=== PATIENT | female | born 1955 | race African-American/Black ===

== ENCOUNTER → 2016-05-29 | Outpatient (CLI) | payer OTHER ==
[~2016-05-29] VITALS: Ht 167.6 cm; Wt 77.1 kg
[~2016-05-29] MED LIST: ADENOSINE 65 MG in GIVE UN-DILUTED 0 ML IV ONE; ALBUPOW26 XX; ASPI-498 PO; FUR40T PO; HYDR-3546 PO; IPRASOL39 IN; LAC30LQ PO; LACT10SO44 PO; METO25TA5 PO; OMEP20CA5 PO; ONDA4SOL2 PO; RIFA550T PO; Rifaximin PO; SUCR1TAB38 PO; TRAM100T37 PO
== END | disposition home or self-care (01) ==
LOC: XY 08:59
PROVIDERS: ATTEND Internal Medicine Cardiovascular Disease
DX: Z01.810 Encounter for preprocedural cardiovascular examination (principal)
CPT/HCPCS: 78452; 93017; A9500; J0153

== ENCOUNTER 2016-06-20 12:02 | Emergency (ER) | payer OTHER ==
[~2016-06-20] VITALS: Ht 167.6 cm; Wt 136.1 kg
[~2016-06-20 12:02] MED LIST changes: -ADENOSINE 65 MG in GIVE UN-DILUTED 0 ML IV ONE
[2016-06-20] MEDS ORDERED: HYDROcodone-ACET 5/325MG TAB PO ONE (12:30)
[2016-06-20] MEDS ORDERED: ONDANSETRON HCL 4 MG/2 ML VIAL IV ONE (15:00)
[2016-06-20 16:12] LABS: Albumin 1.9 g/dL (3.4-5.0); BUN/Creatinine Ratio 17.1; Calcium 7.8 mg/dL (8.5-10.1)
[2016-06-20 16:15] LABS: Bilirubin, Total 2.1 mg/dL (0.2-1.0); Total Protein 5.3 g/dL (6.4-8.2)
[2016-06-20 16:41] LABS: Basophils # (auto) 0 uL; Basophils % (auto) 0.1 % (0.0-2.0); DEFINITIVE VIEW TRANSMISSION; Eosinophils # (auto) 0.1 uL; Eosinophils % (auto) 0.4 % (0.0-7.0); Hematocrit 29.9 % (36.0-46.0); Hemoglobin 9.1 g/dL (12.2-16.2); Lymphocytes # (auto) 1.3 uL; Lymphocytes % (auto) 9.6 % (10.0-50.0); Mean Corpuscular Hemoglobin 26.4 pg (28.0-32.0); Mean Corpuscular Hgb Conc. 30.5 g/dL (32.0-36.0); Mean Corpuscular Volume 86.9 fL (80.0-100.0); Mean Platelet Volume 9.6 fL (7.4-10.4); Monocytes # (auto) 2.1 uL; Monocytes % (auto) 15.1 % (0.0-12.0); Neutrophils # (auto) 10.4 uL; Neutrophils % (auto) 74.8 % (37.0-80.0); Platelet Count (auto) 222 10^3/uL (140-450); White Blood Cell 13.9 10^3/uL (4.4-10.8)
[2016-06-20] MEDS ORDERED: CEPHALEXIN 250 MG CAP PO ONE (17:15)
[2016-06-20] MEDS ORDERED: LACTULOSE 20Gm/30ML SOLN PO ONE (17:15)
[2016-06-20] MEDS ORDERED: BOOST PLUS 8 ounce PO SCH (18:00)
[2016-06-20 18:15] LABS: Anisocytosis Moderate; Burr Cells FEW; Hypochromia Slight; Ovalocytes FEW; Platelet Estimate Adequate
[2016-06-20 18:22] VITALS: BP 106/49
[2016-06-20 18:23] LABS: B-Type Natriuretic Peptide 595.22 pg/mL (0-100); Temperature: 22.7 C (20.0-25.0)
== END 2016-06-20 18:33 | disposition home or self-care (01) ==
LOC: ER 12:02 → EDBD 12:02 → ER 18:32
DX: J45.909 Unspecified asthma, uncomplicated (principal); E43 Unspecified severe protein-calorie malnutrition; Z68.42 Body mass index [BMI] 45.0-49.9, adult; E66.01 Morbid (severe) obesity due to excess calories; D72.829 Elevated white blood cell count, unspecified; I25.10 Atherosclerotic heart disease of native coronary artery without angina pectoris; I50.9 Heart failure, unspecified; E11.22 Type 2 diabetes mellitus with diabetic chronic kidney disease; I13.2 Hypertensive heart and chronic kidney disease with heart failure and with stage 5 chronic kidney disease, or end stage renal disease; N18.6 End stage renal disease; K21.9 Gastro-esophageal reflux disease without esophagitis; I25.2 Old myocardial infarction; B19.20 Unspecified viral hepatitis C without hepatic coma; F17.210 Nicotine dependence, cigarettes, uncomplicated
CPT/HCPCS: 36415; 80053; 82140; 83880; 85025; 85652; 86141; 93970; 96374; 99285; J2405

== ENCOUNTER → 2016-07-11 | Outpatient (CLI) | payer OTHER ==
[2016-07-11 13:40] LABS: DEFINITIVE VIEW TRANSMISSION; Hematocrit 27.7 % (36.0-46.0); Hemoglobin 8.9 g/dL (12.2-16.2); Mean Corpuscular Volume 84.4 fL (80.0-100.0); Mean Platelet Volume 9.6 fL (7.4-10.4); Platelet Count (auto) 192 10^3/uL (140-450); White Blood Cell 9.3 10^3/uL (4.4-10.8)
[2016-07-11 13:56] LABS: Partial Thromboplastin Time 32.1 sec (22.64-33.71)
[2016-07-11 14:04] LABS: Albumin 1.9 g/dL (3.4-5.0); BUN/Creatinine Ratio 9.3; Bilirubin, Total 1.6 mg/dL (0.2-1.0); Calcium 8.1 mg/dL (8.5-10.1); Potassium 4.1 mmol/L (3.5-5.1); Total Protein 5.5 g/dL (6.4-8.2)
[2016-07-11 14:21] LABS: INR 1.39 (0.9-1.15); Prothrombin Time 14.3 sec (9.37-12.3)
[2016-07-11 14:25] LABS: Red Cell Distribution Width 21.6 % (11.6-16.0)
[2016-07-11 14:26] LABS: Metamyelocytes % 0; Myelocytes % 0; Promyelocytes % 0; Reactive Lymphocytes 0
[2016-07-11 18:29] LABS: Anisocytosis Moderate; Platelet Estimate Adequate
== END | disposition home or self-care (01) ==
LOC: LAB 13:13
PROVIDERS: ATTEND Internal Medicine
DX: E11.9 Type 2 diabetes mellitus without complications (principal)
CPT/HCPCS: 36415; 80053; 85007; 85027; 85610; 85652; 85730; 86141

== ENCOUNTER 2016-07-12 10:51 | Inpatient (IN) | payer OTHER ==
[~2016-07-12] VITALS: Ht 157.5 cm; Wt 139.0 kg
[2016-07-12 13:12] LABS: DEFINITIVE VIEW TRANSMISSION; Hematocrit 28.5 % (36.0-46.0); Hemoglobin 9.3 g/dL (12.2-16.2); Mean Corpuscular Hemoglobin 27.1 pg (28.0-32.0); Mean Corpuscular Hgb Conc. 32.5 g/dL (32.0-36.0); Mean Corpuscular Volume 83.4 fL (80.0-100.0); Mean Platelet Volume 10.6 fL (7.4-10.4); Platelet Count (auto) 158 10^3/uL (140-450); SUSPECT VIEW TRANSMISSION; White Blood Cell 9.7 10^3/uL (4.4-10.8)
[2016-07-12 13:46] LABS: BUN/Creatinine Ratio 8.9; Bilirubin, Total 1.5 mg/dL (0.2-1.0); Calcium 8.3 mg/dL (8.5-10.1); Magnesium 2.7 mg/dL (1.6-2.6); Potassium 4.1 mmol/L (3.5-5.1); Total Protein 5.7 g/dL (6.4-8.2)
[2016-07-12 13:51] LABS: Red Cell Distribution Width 21.5 % (11.6-16.0)
[2016-07-12 13:52] LABS: Metamyelocytes % 0; Myelocytes % 0; Promyelocytes % 0; Reactive Lymphocytes 0
[2016-07-12] MEDS ORDERED: ASPirin 81 mg TAB PO ONE ×2 (14:00→15:30)
[2016-07-12 14:26] LABS: Lactic Acid 3.2 mmol/L (0.4-2.0)
[2016-07-12] MEDS ORDERED: ONDANSETRON HCL 4 MG/2 ML VIAL IV ONE (14:30)
[2016-07-12] MEDS ORDERED: MORPHINE SULFATE 4 MG/ML SYRG IV ONE (14:30)
[2016-07-12 14:58] LABS: REFLEX LACTIC ACID YES OR NO YES
[2016-07-12] MEDS: SODIUM CHLORIDE 0.9% 1,000 ML IV SCH ×2 (15:07→17:50)
[2016-07-12] MEDS ORDERED: LORazepam 0.5 MG TAB PO PRN (15:15)
[2016-07-12] MEDS ORDERED: ACETAMINOPHEN 500 MG TAB PO PRN (15:15)
[2016-07-12] MEDS ORDERED: NITROGLYCERIN 0.4 MG SL TAB SL PRN (15:15)
[2016-07-12] MEDS ORDERED: DEXTROSE (50%) 50ML SYRG IV PRN (15:15)
[2016-07-12] MEDS ORDERED: MORPHINE SULF INJ 2 MG/ML SYRINGE 1ML IV PRN (15:15)
[2016-07-12] MEDS ORDERED: TEMAZEPAM 15 MG CAP PO PRN (15:15)
[2016-07-12] MEDS ORDERED: LACTULOSE 20Gm/30ML SOLN PO PRN (15:15)
[2016-07-12] MEDS ORDERED: PROMETHAZINE HCL 25 MG/ML 1ML IV PRN (15:15)
[2016-07-12 15:30] LABS: Platelet Estimate Adequate
[2016-07-12] MEDS ORDERED: ENOXAPARIN SOD 30 MG/0.3 ML SYRINGE SC ONE (15:30)
[2016-07-12] MEDS ORDERED: NITROGLYCERIN 0.2MG/HR TOPICAL PATCH TD ONE (15:30)
[2016-07-12] MEDS ORDERED: PANTOPRAZOLE 40 MG TAB PO ONE (15:30)
[2016-07-12] MEDS ORDERED: METOPROLOL TARTRATE 25 MG TAB PO ONE (15:30)
[2016-07-12 15:31] LABS: Ovalocytes FEW
[2016-07-12] MEDS: InsuLIN REG 1unit/0.01ml Soln (100units/ml) SC SCH ×2 (17:00→22:00)
[2016-07-12] MEDS: ACCU-CHEK COMFORT CURVE STRIP VI SCH ×2 (17:00→22:11)
[2016-07-12 17:40] VITALS: BP 136/77
[2016-07-12 17:50] LABS: B-Type Natriuretic Peptide 753.78 pg/mL (0-100)
[2016-07-12] MEDS ORDERED: PROMETHAZINE HCL 6.25 MG/5 ML ORAL SYRUP PO PRN (19:00)
[2016-07-12 19:58] VITALS: BP 109/65
[2016-07-12] MEDS ORDERED: TRAMADOL HCL 50 MG PO PRN (20:45)
[2016-07-12] MEDS ORDERED: ALBUTEROL 2.5 MG XX SCH (20:45)
[2016-07-12] MEDS ORDERED: IPRATROPIUM BROM 0.5 MG/2.5ML INH SOL NEB SCH (20:45)
[2016-07-12] MEDS ORDERED: traMADol HCL 50 MG TAB PO PRN (21:15)
[2016-07-12] MEDS ORDERED: RIFAXIMIN 550 MG PO SCH (22:00)
[2016-07-12] MEDS: CIPROFLOXACIN HCL 500 MG TAB PO SCH (22:07)
[2016-07-12] MEDS: FUROSEMIDE 40 MG TAB PO SCH (22:08)
[2016-07-12] MEDS: ATORVASTATIN 20 MG TAB PO SCH (22:08)
[2016-07-12] MEDS: METOPROLOL TARTRATE 25 MG TAB PO SCH (22:09)
[2016-07-12] MEDS: RIFAXIMIN 550 MG TAB PO SCH (22:09)
[2016-07-12 22:12] LABS: Lactic Acid 2.2 mmol/L (0.4-2.0)
[2016-07-12 22:45] LABS: REFLEX LACTIC ACID YES OR NO YES
[2016-07-12 23:32] VITALS: BP 109/65
[2016-07-12 23:52] VITALS: BP 123/68
[2016-07-13] MEDS ORDERED: ALBUTEROL SULF 2.5 MG/0.5ML(0.5%) NEB SOLN NEB PRN
[2016-07-13] MEDS: SUCRALFATE 1 GM TAB PO SCH ×5 (00:29→23:48)
[2016-07-13 03:48] VITALS: BP 125/66
[2016-07-13 05:26] LABS: DEFINITIVE VIEW TRANSMISSION; Hematocrit 26.1 % (36.0-46.0); Hemoglobin 8.2 g/dL (12.2-16.2); Mean Corpuscular Hemoglobin 26.4 pg (28.0-32.0); Mean Corpuscular Hgb Conc. 31.6 g/dL (32.0-36.0); Mean Corpuscular Volume 83.6 fL (80.0-100.0); Mean Platelet Volume 9.7 fL (7.4-10.4); Platelet Count (auto) 170 10^3/uL (140-450); SUSPECT VIEW TRANSMISSION; White Blood Cell 8.2 10^3/uL (4.4-10.8)
[2016-07-13 05:28] LABS: Red Cell Distribution Width 21.1 % (11.6-16.0)
[2016-07-13 05:29] LABS: Metamyelocytes % 0; Myelocytes % 0; Promyelocytes % 0; Reactive Lymphocytes 0
[2016-07-13 05:59] LABS: Anisocytosis Slight; Macrocytosis Slight; Platelet Estimate Adequate; Polychromasia Slight
[2016-07-13] MEDS: SODIUM CHLORIDE 0.9% 1,000 ML IV SCH (06:02)
[2016-07-13 06:05] LABS: Albumin 1.8 g/dL (3.4-5.0); BUN/Creatinine Ratio 8.9; Calcium 7.8 mg/dL (8.5-10.1); Potassium 4.4 mmol/L (3.5-5.1)
[2016-07-13] MEDS: InsuLIN REG 1unit/0.01ml Soln (100units/ml) SC SCH ×4 (06:07→22:00)
[2016-07-13] MEDS: ACCU-CHEK COMFORT CURVE STRIP VI SCH ×4 (06:07→22:00)
[2016-07-13 06:08] LABS: Bilirubin, Total 1.5 mg/dL (0.2-1.0); Total Protein 5.3 g/dL (6.4-8.2)
[2016-07-13] MEDS: ASPirin 81 mg TAB PO SCH (09:36)
[2016-07-13] MEDS: CIPROFLOXACIN HCL 500 MG TAB PO SCH ×2 (09:37→22:16)
[2016-07-13] MEDS: METOPROLOL TARTRATE 25 MG TAB PO SCH ×2 (09:38→22:16)
[2016-07-13] MEDS: FUROSEMIDE 40 MG TAB PO SCH ×2 (09:38→22:16)
[2016-07-13] MEDS: PANTOPRAZOLE 40 MG TAB PO SCH (09:38)
[2016-07-13] MEDS: ENOXAPARIN SOD 30 MG/0.3 ML SYRINGE SC SCH (09:39)
[2016-07-13] MEDS: NITROGLYCERIN 0.2MG/HR TOPICAL PATCH TD SCH (09:40)
[2016-07-13] MEDS ORDERED: ENOXAPARIN SOD 40 MG/0.4 ML SYRINGE SC SCH (10:00)
[2016-07-13] MEDS: RIFAXIMIN 550 MG TAB PO SCH ×2 (11:36→22:21)
[2016-07-13] MEDS: PROMETHAZINE HCL 25 MG/ML 1ML IV PRN (11:37)
[2016-07-13 12:01] VITALS: BP 133/73
[2016-07-13 12:08] LABS: Hematocrit 25.2 % (36.0-46.0)
[2016-07-13] MEDS: MORPHINE SULF INJ 2 MG/ML SYRINGE 1ML IV PRN (14:37)
[2016-07-13] MEDS: LACTULOSE 20Gm/30ML SOLN PO SCH ×2 (16:05→22:00)
[2016-07-13 16:25] VITALS: BP 118/70
[2016-07-13 17:38] LABS: Urine Bilirubin Negative (Negative); Urine Blood Negative /uL (Negative); Urine Color Yellow (Yellow); Urine Glucose Normal (Normal); Urine Hyaline Cast FEW /lpf (0 - 2); Urine Ketone Negative (Negative); Urine Nitrite Negative (Negative); Urine RBC 3 /hpf (0 - 4); Urine Squamous Epithelial Cell MOD /hpf (<5); Urine Urobilinogen Normal (Negative); Urine pH 5.5 (5.0-8.0)
[2016-07-13 19:31] VITALS: BP 116/94
[2016-07-13] MEDS: ATORVASTATIN 20 MG TAB PO SCH (22:16)
[2016-07-14] VITALS: BP 106/63
[2016-07-14] MEDS: MORPHINE SULF INJ 2 MG/ML SYRINGE 1ML IV PRN (00:25)
[2016-07-14 04:15] VITALS: BP 133/54
[2016-07-14] MEDS: LACTULOSE 20Gm/30ML SOLN PO SCH ×4 (05:33→21:50)
[2016-07-14] MEDS: ACCU-CHEK COMFORT CURVE STRIP VI SCH ×4 (05:35→21:50)
[2016-07-14] MEDS: SUCRALFATE 1 GM TAB PO SCH ×3 (05:35→17:07)
[2016-07-14] MEDS: InsuLIN REG 1unit/0.01ml Soln (100units/ml) SC SCH ×4 (05:35→21:50)
[2016-07-14 06:14] LABS: DEFINITIVE VIEW TRANSMISSION; Hematocrit 26.8 % (36.0-46.0); Hemoglobin 8.4 g/dL (12.2-16.2); Mean Corpuscular Hemoglobin 26.2 pg (28.0-32.0); Mean Corpuscular Hgb Conc. 31.2 g/dL (32.0-36.0); Mean Platelet Volume 10.1 fL (7.4-10.4); Platelet Count (auto) 178 10^3/uL (140-450); SUSPECT VIEW TRANSMISSION; White Blood Cell 7.5 10^3/uL (4.4-10.8)
[2016-07-14 06:30] LABS: Metamyelocytes % 0; Myelocytes % 0; Promyelocytes % 0; Reactive Lymphocytes 0; Red Cell Distribution Width 20.9 % (11.6-16.0)
[2016-07-14 06:41] LABS: Albumin 1.9 g/dL (3.4-5.0); BUN/Creatinine Ratio 8.6; Bilirubin, Total 1.5 mg/dL (0.2-1.0); Potassium 4.6 mmol/L (3.5-5.1); Total Protein 5.4 g/dL (6.4-8.2)
[2016-07-14 07:20] LABS: Anisocytosis Slight; Burr Cells FEW; Hypochromia Slight; Ovalocytes FEW; Platelet Estimate Adequate
[2016-07-14 08:00] VITALS: BP 139/72
[2016-07-14] MEDS: CIPROFLOXACIN HCL 500 MG TAB PO SCH ×2 (09:44→21:47)
[2016-07-14] MEDS: ASPirin 81 mg TAB PO SCH (09:44)
[2016-07-14] MEDS: FUROSEMIDE 40 MG TAB PO SCH ×2 (09:46→21:46)
[2016-07-14] MEDS: ENOXAPARIN SOD 30 MG/0.3 ML SYRINGE SC SCH (09:46)
[2016-07-14] MEDS: NITROGLYCERIN 0.2MG/HR TOPICAL PATCH TD SCH (09:47)
[2016-07-14] MEDS: PANTOPRAZOLE 40 MG TAB PO SCH (09:48)
[2016-07-14] MEDS: METOPROLOL TARTRATE 25 MG TAB PO SCH ×2 (09:49→21:49)
[2016-07-14] MEDS: RIFAXIMIN 550 MG TAB PO SCH ×2 (09:59→22:00)
[2016-07-14 11:51] VITALS: BP 118/70
[2016-07-14 16:47] VITALS: BP 114/67
[2016-07-14 21:06] VITALS: BP 106/61
[2016-07-14] MEDS: ATORVASTATIN 20 MG TAB PO SCH (21:45)
[2016-07-15] VITALS (7 sets, daily range): BP systolic 104–116; BP diastolic 50–73
[2016-07-15] MEDS: LACTULOSE 20Gm/30ML SOLN PO SCH ×4 (04:24→22:00)
[2016-07-15] MEDS: SUCRALFATE 1 GM TAB PO SCH ×5 (06:00→23:40)
[2016-07-15 06:23] LABS: Albumin 1.8 g/dL (3.4-5.0); Potassium 4.5 mmol/L (3.5-5.1)
[2016-07-15 06:26] LABS: BUN/Creatinine Ratio 8.5; Total Protein 5.3 g/dL (6.4-8.2)
[2016-07-15 06:28] LABS: Bilirubin, Total 1.4 mg/dL (0.2-1.0)
[2016-07-15] MEDS: ACCU-CHEK COMFORT CURVE STRIP VI SCH (06:41)
[2016-07-15] MEDS: InsuLIN REG 1unit/0.01ml Soln (100units/ml) SC SCH (06:42)
[2016-07-15] MEDS: NITROGLYCERIN 0.2MG/HR TOPICAL PATCH TD SCH (09:34)
[2016-07-15] MEDS: METOPROLOL TARTRATE 25 MG TAB PO SCH (09:35)
[2016-07-15] MEDS: PANTOPRAZOLE 40 MG TAB PO SCH (09:36)
[2016-07-15] MEDS: CIPROFLOXACIN HCL 500 MG TAB PO SCH ×2 (09:36→22:38)
[2016-07-15] MEDS: FUROSEMIDE 40 MG TAB PO SCH (09:36)
[2016-07-15] MEDS: ASPirin 81 mg TAB PO SCH (09:37)
[2016-07-15] MEDS: ENOXAPARIN SOD 30 MG/0.3 ML SYRINGE SC SCH (09:37)
[2016-07-15 09:43] LABS: Partial Thromboplastin Time 31.4 sec (22.64-33.71)
[2016-07-15 09:45] LABS: INR 1.43 (0.9-1.15); Prothrombin Time 14.7 sec (9.37-12.3)
[2016-07-15] MEDS: RIFAXIMIN 550 MG TAB PO SCH ×2 (10:17→22:38)
[2016-07-15] MEDS ORDERED: HEPARIN 1,000 UNITS/ml 1ML VIAL ONE (10:22)
[2016-07-15] MEDS ORDERED: LIDOCAINE 1% HCL (LOCAL ANESTH.) INJ 20ML MDV ONE (10:22)
[2016-07-15] MEDS ORDERED: ceFAZolin 1GM VL ONE (10:22)
[2016-07-15] MEDS ORDERED: BUPIVACAINE 0.25% INJ 50ML VIAL ONE (10:22)
[2016-07-15] MEDS ORDERED: HEPARIN SODIUM (PORCINE) 5000 UNITS/ML 1ML VIAL ONE (10:23)
[2016-07-15] MEDS ORDERED: B-COMPLEX W/ C & FOLIC ACID(NEPHROVITE TAB) PO ONE (12:15)
[2016-07-15] MEDS ORDERED: EPOETIN ALFA 10,000 UNIT/1 ML VIAL IV ONE (12:15)
[2016-07-15] MEDS ORDERED: SODIUM CHL 0.9% 1000 ML BAG XX ONE (12:15)
[2016-07-15] MEDS ORDERED: FUROSEMIDE 40 MG TAB PO ONE (12:15)
[2016-07-15] MEDS ORDERED: ceFAZolin 1GM/50ML D5W 50 ML IV ONE (12:25)
[2016-07-15] MEDS ORDERED: PROPOFOL 10 MG/ML 20 ML IV ONE (12:36)
[2016-07-15] MEDS ORDERED: fentaNYL CITRATE 100 MCG/2 ML VL ONE (12:41)
[2016-07-15] MEDS ORDERED: HEPARIN SODIUM (PORCINE) 5000 UNITS/ML 1ML VIAL XX ONE (12:44)
[2016-07-15] MEDS ORDERED: HEPARIN 1,000 UNITS/ml 1ML VIAL XX ONE (12:44)
[2016-07-15] MEDS ORDERED: LIDOCAINE 1% HCL (LOCAL ANESTH.) INJ 20ML MDV IJ ONE (12:44)
[2016-07-15] MEDS ORDERED: hydrALAZINE HCL 20 MG/ML VL IV PRN (13:45)
[2016-07-15] MEDS ORDERED: ONDANSETRON HCL 4 MG/2 ML VIAL IV ONE (13:45)
[2016-07-15] MEDS ORDERED: ePHEDrine SULFATE 50 MG/ML AMP IV PRN (13:45)
[2016-07-15] MEDS ORDERED: fentaNYL CITRATE 100 MCG/2 ML VL IV ONE (14:00)
[2016-07-15] MEDS: HYDROcodone-ACET 5/325MG TAB PO PRN (15:23)
[2016-07-15] MEDS: CALCIUM ACETATE 667 MG CAP PO SCH (15:47)
[2016-07-15] MEDS: ATORVASTATIN 20 MG TAB PO SCH (22:39)
[2016-07-15] MEDS: HYDROmorphone HCL 2 MG/ML VL IV PRN (22:50)
[2016-07-15] MEDS: PROMETHAZINE HCL 25 MG/ML 1ML IV PRN (22:54)
[2016-07-16] MEDS: PROMETHAZINE HCL 25 MG/ML 1ML IV PRN ×2 (03:59→12:48)
[2016-07-16] MEDS: HYDROmorphone HCL 2 MG/ML VL IV PRN ×2 (04:09→12:48)
[2016-07-16] MEDS: LACTULOSE 20Gm/30ML SOLN PO SCH ×4 (04:14→21:50)
[2016-07-16 05:08] VITALS: BP 110/52
[2016-07-16] MEDS: SUCRALFATE 1 GM TAB PO SCH ×3 (06:01→17:54)
[2016-07-16 06:35] LABS: Potassium 4.2 mmol/L (3.5-5.1)
[2016-07-16 06:43] LABS: Albumin 1.7 g/dL (3.4-5.0); BUN/Creatinine Ratio 7.3; Calcium 7.4 mg/dL (8.5-10.1)
[2016-07-16 06:45] LABS: Bilirubin, Total 1.4 mg/dL (0.2-1.0); Total Protein 5.1 g/dL (6.4-8.2)
[2016-07-16] MEDS: FUROSEMIDE 40 MG TAB PO SCH (07:00)
[2016-07-16 09:00] VITALS: BP 105/57
[2016-07-16] MEDS: CALCIUM ACETATE 667 MG CAP PO SCH ×3 (10:34→17:55)
[2016-07-16] MEDS: ENOXAPARIN SOD 30 MG/0.3 ML SYRINGE SC SCH (10:34)
[2016-07-16] MEDS: CIPROFLOXACIN HCL 500 MG TAB PO SCH ×2 (10:34→21:49)
[2016-07-16] MEDS: RIFAXIMIN 550 MG TAB PO SCH ×2 (10:34→21:49)
[2016-07-16] MEDS: ASPirin 81 mg TAB PO SCH (10:35)
[2016-07-16] MEDS: B-COMPLEX W/ C & FOLIC ACID(NEPHROVITE TAB) PO SCH (10:35)
[2016-07-16] MEDS: PANTOPRAZOLE 40 MG TAB PO SCH (10:35)
[2016-07-16 12:43] VITALS: BP 113/56
[2016-07-16] MEDS: SODIUM FERR GLUC 62.5MG/5ML 125 MG in SODIUM CHL 0.9% 100 ML IV SCH (15:25)
[2016-07-16 17:00] VITALS: BP 111/58
[2016-07-16] MEDS: ATORVASTATIN 20 MG TAB PO SCH (21:49)
[2016-07-16] MEDS: HYDROcodone-ACET 5/325MG TAB PO PRN (21:50)
[2016-07-16 22:26] VITALS: BP 106/73
[2016-07-17] MEDS: SUCRALFATE 1 GM TAB PO SCH ×4 (00:07→18:00)
[2016-07-17] MEDS: LACTULOSE 20Gm/30ML SOLN PO SCH ×4 (04:00→21:27)
[2016-07-17 05:13] VITALS: BP 118/50
[2016-07-17] MEDS: FUROSEMIDE 40 MG TAB PO SCH (06:04)
[2016-07-17 06:32] LABS: Albumin 1.9 g/dL (3.4-5.0); BUN/Creatinine Ratio 6.9; Bilirubin, Total 1.3 mg/dL (0.2-1.0); Calcium 8.2 mg/dL (8.5-10.1); Potassium 4.3 mmol/L (3.5-5.1); Total Protein 5.4 g/dL (6.4-8.2)
[2016-07-17] MEDS: HYDROcodone-ACET 5/325MG TAB PO PRN (08:10)
[2016-07-17 09:00] VITALS: BP 119/61
[2016-07-17] MEDS: SODIUM FERR GLUC 62.5MG/5ML 125 MG in SODIUM CHL 0.9% 100 ML IV SCH (10:00)
[2016-07-17] MEDS ORDERED: SODIUM CHL 0.9% 1000 ML BAG XX ONE (10:00)
[2016-07-17] MEDS ORDERED: EPOETIN ALFA 10,000 UNIT/1 ML VIAL IV ONE (10:00)
[2016-07-17 10:03] VITALS: BP 121/65
[2016-07-17] MEDS: CALCIUM ACETATE 667 MG CAP PO SCH ×2 (12:00→18:00)
[2016-07-17] MEDS: ENOXAPARIN SOD 30 MG/0.3 ML SYRINGE SC SCH (12:09)
[2016-07-17] MEDS: RIFAXIMIN 550 MG TAB PO SCH ×2 (12:09→21:29)
[2016-07-17] MEDS: B-COMPLEX W/ C & FOLIC ACID(NEPHROVITE TAB) PO SCH (12:09)
[2016-07-17] MEDS: CIPROFLOXACIN HCL 500 MG TAB PO SCH (12:10)
[2016-07-17] MEDS: PANTOPRAZOLE 40 MG TAB PO SCH (12:10)
[2016-07-17] MEDS: HYDROmorphone HCL 2 MG/ML VL IV PRN (12:26)
[2016-07-17] MEDS: PROMETHAZINE HCL 25 MG/ML 1ML IV PRN (12:35)
[2016-07-17 13:00] VITALS: BP 114/56
[2016-07-17 13:29] LABS: Hemoglobin 8.2 g/dL (12.2-16.2)
[2016-07-17 15:10] LABS: Vitamin D 25-Hydroxy 4.9 ng/mL (.); Vitamin D-2 25-Hydroxy <1.0 ng/mL (.)
[2016-07-17 16:56] VITALS: BP 116/58
[2016-07-17] MEDS: ATORVASTATIN 20 MG TAB PO SCH (21:28)
[2016-07-17 21:31] VITALS: BP 111/67
[2016-07-17] MEDS ORDERED: FUROSEMIDE 20 MG/2 ML VIAL IV ONE (22:15)
[2016-07-18] MEDS: HYDROcodone-ACET 5/325MG TAB PO PRN ×3 (02:08→21:34)
[2016-07-18] MEDS: PROMETHAZINE HCL 25 MG/ML 1ML IV PRN (02:08)
[2016-07-18] MEDS: LACTULOSE 20Gm/30ML SOLN PO SCH ×4 (04:00→21:35)
[2016-07-18 05:00] VITALS: BP 120/63
[2016-07-18] MEDS: SUCRALFATE 1 GM TAB PO SCH ×4 (06:03→18:20)
[2016-07-18] MEDS: FUROSEMIDE 40 MG TAB PO SCH (06:03)
[2016-07-18 07:07] LABS: Albumin 1.6 g/dL (3.4-5.0); Calcium 7.5 mg/dL (8.5-10.1); Potassium 3.9 mmol/L (3.5-5.1)
[2016-07-18 07:10] LABS: Bilirubin, Total 1.4 mg/dL (0.2-1.0); Total Protein 4.7 g/dL (6.4-8.2)
[2016-07-18] MEDS: CALCIUM ACETATE 667 MG CAP PO SCH ×3 (08:00→18:20)
[2016-07-18 09:00] VITALS: BP 120/64
[2016-07-18] MEDS: B-COMPLEX W/ C & FOLIC ACID(NEPHROVITE TAB) PO SCH (09:58)
[2016-07-18] MEDS: CIPROFLOXACIN HCL 500 MG TAB PO SCH (09:59)
[2016-07-18] MEDS: RIFAXIMIN 550 MG TAB PO SCH ×2 (10:00→21:34)
[2016-07-18] MEDS: PANTOPRAZOLE 40 MG TAB PO SCH (10:01)
[2016-07-18] MEDS: SODIUM FERR GLUC 62.5MG/5ML 125 MG in SODIUM CHL 0.9% 100 ML IV SCH (10:04)
[2016-07-18] MEDS: ENOXAPARIN SOD 30 MG/0.3 ML SYRINGE SC SCH (10:05)
[2016-07-18 13:00] VITALS: BP 127/65
[2016-07-18] MEDS ORDERED: SODIUM CHL 0.9% 1000 ML BAG XX ONE (14:45)
[2016-07-18] MEDS ORDERED: EPOETIN ALFA 10,000 UNIT/1 ML VIAL IV ONE (14:45)
[2016-07-18 17:00] VITALS: BP 120/62
[2016-07-18] MEDS: ATORVASTATIN 20 MG TAB PO SCH (21:34)
[2016-07-19 00:06] VITALS: BP 120/62
[2016-07-19] MEDS: LACTULOSE 20Gm/30ML SOLN PO SCH ×2 (04:00→09:46)
[2016-07-19 05:08] VITALS: BP 124/65
[2016-07-19] MEDS: FUROSEMIDE 40 MG TAB PO SCH (06:16)
[2016-07-19] MEDS: SUCRALFATE 1 GM TAB PO SCH ×3 (06:17→11:56)
[2016-07-19 06:38] LABS: Albumin 1.7 g/dL (3.4-5.0); Calcium 7.6 mg/dL (8.5-10.1); Potassium 3.9 mmol/L (3.5-5.1)
[2016-07-19 06:41] LABS: BUN/Creatinine Ratio 5.8
[2016-07-19 06:42] LABS: Bilirubin, Total 1.6 mg/dL (0.2-1.0); Total Protein 4.8 g/dL (6.4-8.2)
[2016-07-19] MEDS: CALCIUM ACETATE 667 MG CAP PO SCH ×2 (08:00→11:56)
[2016-07-19 08:30] VITALS: BP 126/59
[2016-07-19] MEDS: SODIUM FERR GLUC 62.5MG/5ML 125 MG in SODIUM CHL 0.9% 100 ML IV SCH (09:46)
[2016-07-19] MEDS: RIFAXIMIN 550 MG TAB PO SCH (09:46)
[2016-07-19] MEDS: PANTOPRAZOLE 40 MG TAB PO SCH (09:46)
[2016-07-19] MEDS: B-COMPLEX W/ C & FOLIC ACID(NEPHROVITE TAB) PO SCH (09:46)
[2016-07-19] MEDS: ENOXAPARIN SOD 30 MG/0.3 ML SYRINGE SC SCH (09:47)
[2016-07-19] MEDS ORDERED: METOPROLOL SUCCINATE XL 50 MG TAB PO SCH (10:00)
[2016-07-19] MEDS ORDERED: METO50TA7 PO (10:57)
[2016-07-19] MEDS ORDERED: ALBUMIN 25% 100 ML IV ONE (11:30)
[2016-07-19] MEDS: HYDROcodone-ACET 5/325MG TAB PO PRN (12:02)
[2016-07-19 13:00] VITALS: BP 112/38
== END 2016-07-19 14:03 | disposition home or self-care (01) | DRG 280 ==
LOC: ER 10:54 → TELE 10:55 → DOU IN ICU 17:39 → TELE-WESTW 07-14 14:55
PROVIDERS: ADMIT Internal Medicine; ATTEND Internal Medicine
PROC: 02HV33Z Insertion of Infusion Device into Superior Vena Cava, Percutaneous Approach (ICD-10-PCS; 2016-07-15)
PROC: 5A1D60Z (ICD-10-PCS; 2016-07-15)
PROC: B5171ZA Fluoroscopy of Left Subclavian Vein using Low Osmolar Contrast, Guidance (ICD-10-PCS; principal; 2016-07-15 12:36)
DX: I21.4 Non-ST elevation (NSTEMI) myocardial infarction (principal); E43 Unspecified severe protein-calorie malnutrition; N18.6 End stage renal disease; I13.2 Hypertensive heart and chronic kidney disease with heart failure and with stage 5 chronic kidney disease, or end stage renal disease; Z68.43 Body mass index [BMI] 50.0-59.9, adult; N04.9 Nephrotic syndrome with unspecified morphologic changes; I50.32 Chronic diastolic (congestive) heart failure; T81.4XXA Infection following a procedure, initial encounter; D75.89 Other specified diseases of blood and blood-forming organs; B19.20 Unspecified viral hepatitis C without hepatic coma; D50.9 Iron deficiency anemia, unspecified; D63.8 Anemia in other chronic diseases classified elsewhere; E11.22 Type 2 diabetes mellitus with diabetic chronic kidney disease; E66.9 Obesity, unspecified; F17.210 Nicotine dependence, cigarettes, uncomplicated; I25.10 Atherosclerotic heart disease of native coronary artery without angina pectoris; J45.909 Unspecified asthma, uncomplicated; K21.9 Gastro-esophageal reflux disease without esophagitis; K74.60 Unspecified cirrhosis of liver; Z82.3 Family history of stroke; Z82.49 Family history of ischemic heart disease and other diseases of the circulatory system; Z83.3 Family history of diabetes mellitus; I25.2 Old myocardial infarction; Z79.899 Other long term (current) drug therapy; Z99.2 Dependence on renal dialysis; Z79.4 Long term (current) use of insulin; Z90.49 Acquired absence of other specified parts of digestive tract
CPT/HCPCS: 36415; 71010; 76000; 76775; 80053; 80061; 81001; 82270; 82306; 82550; 82570; 82728; 82962; 83036; 83540; 83550; 83605; 83735; 83880; 83970; 84100; 84156; 84443; 84484; 85007; 85014; 85018; 85027; 85610; 85652; 85730; 86141; 86803; 86850; 86900; 86901; 87040; 87081; 87340; 90935; 93005; 93970; 96372; 96374; 96375; J0690; J0885; J1642; J2001; J2405; J2704; J3490

== ENCOUNTER 2016-08-21 15:14 | Inpatient (IN) | payer OTHER ==
[~2016-08-21] VITALS: Ht 167.6 cm; Wt 122.1 kg
[~2016-08-21 15:14] MED LIST changes: -METO25TA5 PO; +METO50TA7 PO
[2016-08-21 16:49] LABS: Basophils # (auto) 0.1 uL; DEFINITIVE VIEW TRANSMISSION; Eosinophils # (auto) 0.2 uL; Neutrophils # (auto) 5.2 uL; SUSPECT VIEW TRANSMISSION
[2016-08-21 16:57] LABS: Basophils % (auto) 0.8 % (0.0-2.0); Eosinophils % (auto) 2.8 % (0.0-7.0); Hematocrit 20.8 % (36.0-46.0); Lymphocytes # (auto) 0.8 uL; Lymphocytes % (auto) 10.5 % (10.0-50.0); Mean Corpuscular Hemoglobin 26.9 pg (28.0-32.0); Mean Corpuscular Hgb Conc. 31.9 g/dL (32.0-36.0); Mean Corpuscular Volume 84.5 fL (80.0-100.0); Mean Platelet Volume 8.9 fL (7.4-10.4); Monocytes # (auto) 1.1 uL; Neutrophils % (auto) 70.9 % (37.0-80.0); Platelet Count (auto) 125 10^3/uL (140-450); White Blood Cell 7.3 10^3/uL (4.4-10.8)
[2016-08-21 17:00] LABS: Nucleated Red Blood Cells % 5.9 %; Red Cell Distribution Width 24.4 % (11.6-16.0)
[2016-08-21 17:03] LABS: Hemoglobin 6.6 g/dL (12.2-16.2)
[2016-08-21 17:22] LABS: Albumin 1.8 g/dL (3.4-5.0); BUN/Creatinine Ratio 2.7; Bilirubin, Total 2.3 mg/dL (0.2-1.0); Calcium 7.7 mg/dL (8.5-10.1); Magnesium 2.1 mg/dL (1.6-2.6); Total Protein 5.3 g/dL (6.4-8.2)
[2016-08-21 17:33] LABS: Potassium 2.7 mmol/L (3.5-5.1)
[2016-08-21] MEDS ORDERED: SODIUM CHLORIDE 0.9% 500 ML IVB ONE (18:43)
[2016-08-21 18:45] LABS: Anisocytosis Moderate; Hypochromia Moderate; Ovalocytes FEW; Platelet Estimate Decreased
[2016-08-21 18:46] LABS: Poikilocytosis Moderate
[2016-08-21] MEDS ORDERED: ACETAMINOPHEN 500 MG TAB PO PRN (19:15)
[2016-08-21] MEDS ORDERED: DEXTROSE (50%) 50ML SYRG IV PRN (19:15)
[2016-08-21] MEDS ORDERED: LACTULOSE 20Gm/30ML SOLN PO PRN (19:15)
[2016-08-21] MEDS ORDERED: PANTOPRAZOLE SODIUM 40 MG/10 ML VIAL IV ONE (19:15)
[2016-08-21] MEDS ORDERED: MORPHINE SULF INJ 2 MG/ML SYRINGE 1ML IV PRN (19:15)
[2016-08-21] MEDS ORDERED: NITROGLYCERIN 0.4 MG SL TAB SL PRN (19:15)
[2016-08-21] MEDS ORDERED: ALBUTEROL SULF 2.5 MG/0.5ML(0.5%) NEB SOLN NEB PRN (19:15)
[2016-08-21] MEDS ORDERED: LORazepam 0.5 MG TAB PO PRN (19:15)
[2016-08-21] MEDS ORDERED: LIDOCAINE 1% HCL (LOCAL ANESTH.) INJ 20ML MDV ID ONE (19:45)
[2016-08-21] MEDS: PROCHLORPERAZINE EDISYLATE 5 MG/ML 2ML VIAL IV PRN (20:18)
[2016-08-21] MEDS ORDERED: CITA10TA59 PO (21:19)
[2016-08-21] MEDS ORDERED: SULF400T11 PO (21:19)
[2016-08-21] MEDS ORDERED: NITR0.4S29 SL (21:19)
[2016-08-21] MEDS ORDERED: FURO40TA4 PO (21:19)
[2016-08-21 21:25] LABS: INR 2.04 (0.9-1.15); Partial Thromboplastin Time 37.4 sec (22.64-33.71); Prothrombin Time 21.7 sec (9.37-12.3)
[2016-08-21] MEDS ORDERED: POTASSIUM CHL 20 Meq TABLET PO ONE (21:30)
[2016-08-21] MEDS: SUCRALFATE 1 GM TAB PO SCH (22:00)
[2016-08-21] MEDS: ACCU-CHEK COMFORT CURVE STRIP VI SCH (22:00)
[2016-08-21] MEDS: InsuLIN REG 1unit/0.01ml Soln (100units/ml) SC SCH (22:00)
[2016-08-21 22:10] VITALS: BP 141/75
[2016-08-21] MEDS: SULFAMETHOX W/TRIMETH(800/160MG) DS TAB PO SCH (22:36)
[2016-08-21] MEDS: RIFAXIMIN 550 MG TAB PO SCH (22:37)
[2016-08-21] MEDS: SODIUM CHLOR 0.9% PF (SALINE LOCK) 10ML VIAL IV SCH (22:38)
[2016-08-21 22:51] VITALS: BP 127/62
[2016-08-21 23:35] VITALS: BP 141/75
[2016-08-22] VITALS (17 sets, daily range): BP systolic 96–135; BP diastolic 51–90
[2016-08-22 01:08] LABS: Hematocrit 17.7 % (36.0-46.0)
[2016-08-22 01:18] LABS: Hemoglobin 5.6 g/dL (12.2-16.2)
[2016-08-22] MEDS: SUCRALFATE 1 GM TAB PO SCH ×4 (05:26→22:04)
[2016-08-22] MEDS: FUROSEMIDE 20 MG TAB PO SCH ×2 (05:27→18:00)
[2016-08-22] MEDS: InsuLIN REG 1unit/0.01ml Soln (100units/ml) SC SCH ×4 (05:57→22:00)
[2016-08-22] MEDS: ACCU-CHEK COMFORT CURVE STRIP VI SCH ×4 (05:57→22:26)
[2016-08-22] MEDS: IPRATROPIUM BROM 0.5 MG/2.5ML INH SOL NEB SCH ×4 (06:56→18:00)
[2016-08-22] MEDS: ALBUTEROL SULF 2.5 MG/0.5ML(0.5%) NEB SOLN NEB SCH ×4 (06:56→18:00)
[2016-08-22] MEDS: PROCHLORPERAZINE EDISYLATE 5 MG/ML 2ML VIAL IV PRN ×2 (08:44→19:38)
[2016-08-22] MEDS: SODIUM CHLOR 0.9% PF (SALINE LOCK) 10ML VIAL IV SCH ×2 (10:00→22:04)
[2016-08-22] MEDS: CITALOPRAM HYDROBR 20 MG TAB PO SCH (10:16)
[2016-08-22] MEDS: METOPROLOL SUCCINATE XL 50 MG TAB PO SCH (10:16)
[2016-08-22] MEDS: SULFAMETHOX W/TRIMETH(800/160MG) DS TAB PO SCH ×2 (10:16→22:04)
[2016-08-22] MEDS: PANTOPRAZOLE 40 MG TAB PO SCH (10:16)
[2016-08-22] MEDS: RIFAXIMIN 550 MG TAB PO SCH ×2 (11:43→22:04)
[2016-08-22] MEDS: PHYTONADIONE (VIT K)10 MG/ML 1ML VIAL SUBCUT SCH (11:43)
[2016-08-22 12:02] LABS: Basophils # (auto) 0 uL; Basophils % (auto) 0.4 % (0.0-2.0); DEFINITIVE VIEW TRANSMISSION; Eosinophils # (auto) 0.3 uL; Hematocrit 23.1 % (36.0-46.0); Hemoglobin 7.4 g/dL (12.2-16.2); Lymphocytes % (auto) 13.7 % (10.0-50.0); Mean Corpuscular Hemoglobin 27.9 pg (28.0-32.0); Mean Corpuscular Hgb Conc. 32.2 g/dL (32.0-36.0); Mean Corpuscular Volume 86.7 fL (80.0-100.0); Mean Platelet Volume 8.9 fL (7.4-10.4); Monocytes # (auto) 1.1 uL; Monocytes % (auto) 14.2 % (0.0-12.0); Neutrophils # (auto) 5.1 uL; Neutrophils % (auto) 67.7 % (37.0-80.0); Platelet Count (auto) 99 10^3/uL (140-450); SUSPECT VIEW TRANSMISSION; White Blood Cell 7.6 10^3/uL (4.4-10.8)
[2016-08-22 12:30] LABS: Albumin 1.6 g/dL (3.4-5.0); Calcium 7.8 mg/dL (8.5-10.1); Potassium 3.2 mmol/L (3.5-5.1); Total Protein 4.7 g/dL (6.4-8.2)
[2016-08-22 12:43] LABS: Nucleated Red Blood Cells % 3.7 %; Red Cell Distribution Width 20.5 % (11.6-16.0)
[2016-08-22] MEDS ORDERED: EPOETIN ALFA 10,000 UNIT/1 ML VIAL IV ONE (16:30)
[2016-08-22] MEDS ORDERED: SODIUM CHL 0.9% 1000 ML BAG XX ONE (16:30)
[2016-08-22 19:45] LABS: Platelet Estimate Decreased
[2016-08-22 19:46] LABS: Anisocytosis Moderate; Hypochromia Moderate; Ovalocytes FEW; Poikilocytosis Moderate
[2016-08-22] MEDS: TEMAZEPAM 15 MG CAP PO PRN (22:04)
[2016-08-22] MEDS: PRO-STAT 64 30ML PO SCH (22:27)
[2016-08-23] VITALS (10 sets, daily range): BP systolic 101–117; BP diastolic 54–82
[2016-08-23 05:40] LABS: Calcium 7.4 mg/dL (8.5-10.1); Potassium 3.1 mmol/L (3.5-5.1)
[2016-08-23 05:43] LABS: Basophils # (auto) 0 uL; Basophils % (auto) 0.2 % (0.0-2.0); DEFINITIVE VIEW TRANSMISSION; Eosinophils # (auto) 0.4 uL; Eosinophils % (auto) 4.1 % (0.0-7.0); Hematocrit 23.5 % (36.0-46.0); Hemoglobin 7.6 g/dL (12.2-16.2); Lymphocytes # (auto) 1.9 uL; Lymphocytes % (auto) 17.3 % (10.0-50.0); Mean Corpuscular Hgb Conc. 32.4 g/dL (32.0-36.0); Mean Corpuscular Volume 86.5 fL (80.0-100.0); Mean Platelet Volume 9.4 fL (7.4-10.4); Monocytes # (auto) 1.4 uL; Monocytes % (auto) 12.6 % (0.0-12.0); Neutrophils # (auto) 7.1 uL; Neutrophils % (auto) 65.8 % (37.0-80.0); Platelet Count (auto) 88 10^3/uL (140-450); White Blood Cell 10.8 10^3/uL (4.4-10.8)
[2016-08-23 06:21] LABS: INR 2.37 (0.9-1.15)
[2016-08-23] MEDS: FUROSEMIDE 20 MG TAB PO SCH (06:23)
[2016-08-23] MEDS: ACCU-CHEK COMFORT CURVE STRIP VI SCH ×4 (06:24→21:49)
[2016-08-23 06:26] LABS: Partial Thromboplastin Time > 170.00 sec (22.64-33.71)
[2016-08-23] MEDS: InsuLIN REG 1unit/0.01ml Soln (100units/ml) SC SCH ×4 (06:29→21:48)
[2016-08-23] MEDS: PHYTONADIONE (VIT K)10 MG/ML 1ML VIAL SUBCUT SCH (07:06)
[2016-08-23] MEDS: ALBUTEROL SULF 2.5 MG/0.5ML(0.5%) NEB SOLN NEB SCH ×3 (07:55→18:00)
[2016-08-23] MEDS: IPRATROPIUM BROM 0.5 MG/2.5ML INH SOL NEB SCH ×3 (07:55→18:00)
[2016-08-23] MEDS: CITALOPRAM HYDROBR 20 MG TAB PO SCH (09:07)
[2016-08-23] MEDS: SULFAMETHOX W/TRIMETH(800/160MG) DS TAB PO SCH (09:08)
[2016-08-23] MEDS: RIFAXIMIN 550 MG TAB PO SCH ×2 (09:08→21:48)
[2016-08-23] MEDS: SUCRALFATE 1 GM TAB PO SCH ×4 (09:08→21:48)
[2016-08-23] MEDS: METOPROLOL SUCCINATE XL 50 MG TAB PO SCH (09:09)
[2016-08-23] MEDS: PRO-STAT 64 30ML PO SCH ×2 (09:09→22:51)
[2016-08-23] MEDS: SODIUM CHLOR 0.9% PF (SALINE LOCK) 10ML VIAL IV SCH ×2 (09:09→21:48)
[2016-08-23] MEDS: PANTOPRAZOLE 40 MG TAB PO SCH (09:10)
[2016-08-23] MEDS ORDERED: POTASSIUM CHL 20 Meq TABLET PO ONE (11:45)
[2016-08-23] MEDS: TEMAZEPAM 15 MG CAP PO PRN (21:48)
[2016-08-24] VITALS (11 sets, daily range): BP systolic 65–117; BP diastolic 34–67
[2016-08-24] MEDS: IPRATROPIUM BROM 0.5 MG/2.5ML INH SOL NEB SCH ×4 (00:23→19:01)
[2016-08-24] MEDS: ALBUTEROL SULF 2.5 MG/0.5ML(0.5%) NEB SOLN NEB SCH ×4 (00:23→19:01)
[2016-08-24 06:09] LABS: Basophils # (auto) 0 uL; Basophils % (auto) 0.4 % (0.0-2.0); DEFINITIVE VIEW TRANSMISSION; Eosinophils # (auto) 0.2 uL; Eosinophils % (auto) 1.5 % (0.0-7.0); Lymphocytes % (auto) 8.8 % (10.0-50.0); Mean Corpuscular Hgb Conc. 33.2 g/dL (32.0-36.0); Mean Corpuscular Volume 87.4 fL (80.0-100.0); Mean Platelet Volume 9.6 fL (7.4-10.4); Monocytes # (auto) 1.2 uL; Monocytes % (auto) 10.9 % (0.0-12.0); Neutrophils # (auto) 8.9 uL; Neutrophils % (auto) 78.4 % (37.0-80.0); Platelet Count (auto) 68 10^3/uL (140-450); White Blood Cell 11.3 10^3/uL (4.4-10.8)
[2016-08-24 06:26] LABS: Nucleated Red Blood Cells % 5.1 %
[2016-08-24 06:31] LABS: Hematocrit 18.3 % (36.0-46.0); Hemoglobin 6.1 g/dL (12.2-16.2)
[2016-08-24] MEDS: InsuLIN REG 1unit/0.01ml Soln (100units/ml) SC SCH ×4 (07:00→22:00)
[2016-08-24] MEDS: ACCU-CHEK COMFORT CURVE STRIP VI SCH ×4 (07:00→21:44)
[2016-08-24] MEDS: SUCRALFATE 1 GM TAB PO SCH ×4 (07:37→21:42)
[2016-08-24] MEDS: SODIUM CHLOR 0.9% PF (SALINE LOCK) 10ML VIAL IV SCH ×2 (10:00→21:42)
[2016-08-24] MEDS: METOPROLOL SUCCINATE XL 50 MG TAB PO SCH (10:00)
[2016-08-24] MEDS: PRO-STAT 64 30ML PO SCH ×2 (10:00→21:44)
[2016-08-24] MEDS ORDERED: ALBUMIN 25% 100 ML IV PRN (11:45)
[2016-08-24] MEDS ORDERED: EPOETIN ALFA 10,000 UNIT/1 ML VIAL IV ONE (11:45)
[2016-08-24] MEDS ORDERED: MIDODRINE HCL 10 MG TAB PO SCH (11:45)
[2016-08-24] MEDS ORDERED: SODIUM CHL 0.9% 1000 ML BAG XX ONE (11:45)
[2016-08-24 12:47] LABS: Partial Thromboplastin Time 55.6 sec (22.64-33.71)
[2016-08-24 12:49] LABS: INR 2.13 (0.9-1.15)
[2016-08-24] MEDS: MORPHINE SULF INJ 2 MG/ML SYRINGE 1ML IV PRN ×2 (14:06→21:42)
[2016-08-24] MEDS ORDERED: PHYTONADIONE (VIT K)10 MG/ML 1ML VIAL ONE (14:18)
[2016-08-24] MEDS: PHYTONADIONE (VIT K)10 MG/ML 1ML VIAL SUBCUT SCH (14:29)
[2016-08-24] MEDS: PANTOPRAZOLE 40 MG TAB PO SCH (14:30)
[2016-08-24] MEDS: CITALOPRAM HYDROBR 20 MG TAB PO SCH (14:31)
[2016-08-24] MEDS: RIFAXIMIN 550 MG TAB PO SCH ×2 (14:32→21:44)
[2016-08-24] MEDS ORDERED: DESMOPRESSIN INJECTION 20 MCG in SODIUM CHL 0.9% 50 ML IV ONE (15:00)
[2016-08-24 16:29] LABS: Basophils # (auto) 0 uL; DEFINITIVE VIEW TRANSMISSION; Eosinophils # (auto) 0 uL; Lymphocytes # (auto) 0.4 uL; Monocytes # (auto) 1.1 uL; Platelet Count (auto) 41 10^3/uL (140-450)
[2016-08-24 16:35] LABS: Basophils % (auto) 0.4 % (0.0-2.0); Eosinophils % (auto) 0.5 % (0.0-7.0); Hematocrit 16.1 % (36.0-46.0); Lymphocytes % (auto) 3.7 % (10.0-50.0); Mean Corpuscular Hemoglobin 28.7 pg (28.0-32.0); Mean Corpuscular Volume 86.9 fL (80.0-100.0); Mean Platelet Volume 9.4 fL (7.4-10.4); Monocytes % (auto) 9.7 % (0.0-12.0); Neutrophils # (auto) 9.3 uL; Neutrophils % (auto) 85.7 % (37.0-80.0); Nucleated Red Blood Cells % 2.8 %; Red Cell Distribution Width 17.4 % (11.6-16.0); White Blood Cell 10.8 10^3/uL (4.4-10.8)
[2016-08-24 16:45] LABS: Hemoglobin 5.3 g/dL (12.2-16.2)
[2016-08-24 17:59] LABS: Anisocytosis Moderate; Hypochromia Moderate; Platelet Estimate Decreased; Poikilocytosis Moderate
[2016-08-24 18:00] LABS: Polychromasia Slight
[2016-08-24 18:07] LABS: INR 2.21 (0.9-1.15); Partial Thromboplastin Time 56.3 sec (22.64-33.71); Prothrombin Time 23.9 sec (9.37-12.3)
[2016-08-24 22:29] LABS: Hematocrit 15.1 % (36.0-46.0)
[2016-08-24 22:59] LABS: Hemoglobin 5.1 g/dL (12.2-16.2)
[2016-08-24 23:01] LABS: INR 1.97 (0.9-1.15); Partial Thromboplastin Time 42.3 sec (22.64-33.71); Prothrombin Time 21.3 sec (9.37-12.3)
[2016-08-25] VITALS (25 sets, daily range): BP systolic 94–155; BP diastolic 33–68
[2016-08-25] MEDS: IPRATROPIUM BROM 0.5 MG/2.5ML INH SOL NEB SCH ×4 (05:42→19:00)
[2016-08-25] MEDS: ALBUTEROL SULF 2.5 MG/0.5ML(0.5%) NEB SOLN NEB SCH ×4 (05:42→19:00)
[2016-08-25] MEDS: SUCRALFATE 1 GM TAB PO SCH ×4 (06:11→22:32)
[2016-08-25] MEDS: ACCU-CHEK COMFORT CURVE STRIP VI SCH ×4 (06:11→22:00)
[2016-08-25] MEDS: InsuLIN REG 1unit/0.01ml Soln (100units/ml) SC SCH ×4 (06:20→22:00)
[2016-08-25 06:59] LABS: Basophils # (auto) 0 uL; Basophils % (auto) 0.2 % (0.0-2.0); DEFINITIVE VIEW TRANSMISSION; Eosinophils # (auto) 0.2 uL; Eosinophils % (auto) 1.7 % (0.0-7.0); Hematocrit 18.9 % (36.0-46.0); Lymphocytes # (auto) 1.4 uL; Lymphocytes % (auto) 9.9 % (10.0-50.0); Mean Corpuscular Hemoglobin 29.9 pg (28.0-32.0); Mean Corpuscular Hgb Conc. 33.7 g/dL (32.0-36.0); Mean Corpuscular Volume 88.9 fL (80.0-100.0); Mean Platelet Volume 8.9 fL (7.4-10.4); Monocytes # (auto) 2.1 uL; Monocytes % (auto) 14.4 % (0.0-12.0); Neutrophils # (auto) 10.6 uL; Neutrophils % (auto) 73.8 % (37.0-80.0); Platelet Count (auto) 73 10^3/uL (140-450); Red Cell Distribution Width 16.6 % (11.6-16.0); White Blood Cell 14.4 10^3/uL (4.4-10.8)
[2016-08-25 07:02] LABS: Hemoglobin 6.4 g/dL (12.2-16.2)
[2016-08-25 07:15] LABS: Partial Thromboplastin Time 36.9 sec (22.64-33.71)
[2016-08-25 07:16] LABS: INR 1.73 (0.9-1.15); Prothrombin Time 18.7 sec (9.37-12.3)
[2016-08-25 07:37] LABS: Platelet Estimate Decreased
[2016-08-25 07:45] LABS: Anisocytosis Slight; Ovalocytes FEW; Polychromasia Slight
[2016-08-25] MEDS: PRO-STAT 64 30ML PO SCH ×2 (10:00→22:00)
[2016-08-25] MEDS: CITALOPRAM HYDROBR 20 MG TAB PO SCH (10:27)
[2016-08-25] MEDS: PANTOPRAZOLE 40 MG TAB PO SCH (10:28)
[2016-08-25] MEDS: SODIUM CHLOR 0.9% PF (SALINE LOCK) 10ML VIAL IV SCH ×2 (10:28→22:32)
[2016-08-25] MEDS: RIFAXIMIN 550 MG TAB PO SCH ×2 (11:06→22:32)
[2016-08-26] VITALS (12 sets, daily range): BP systolic 96–126; BP diastolic 55–73
[2016-08-26] MEDS: IPRATROPIUM BROM 0.5 MG/2.5ML INH SOL NEB SCH ×4 (00:32→18:00)
[2016-08-26] MEDS: ALBUTEROL SULF 2.5 MG/0.5ML(0.5%) NEB SOLN NEB SCH ×4 (00:32→18:00)
[2016-08-26] MEDS: MORPHINE SULF INJ 2 MG/ML SYRINGE 1ML IV PRN (02:27)
[2016-08-26] MEDS: ACCU-CHEK COMFORT CURVE STRIP VI SCH ×4 (06:30→22:00)
[2016-08-26] MEDS: SUCRALFATE 1 GM TAB PO SCH ×4 (06:30→22:40)
[2016-08-26] MEDS: InsuLIN REG 1unit/0.01ml Soln (100units/ml) SC SCH ×4 (06:30→22:00)
[2016-08-26 07:20] LABS: DEFINITIVE VIEW TRANSMISSION; Hematocrit 22.4 % (36.0-46.0); Hemoglobin 7.6 g/dL (12.2-16.2); Mean Platelet Volume 9.5 fL (7.4-10.4); Platelet Count (auto) 70 10^3/uL (140-450); Red Cell Distribution Width 16.6 % (11.6-16.0); White Blood Cell 13.8 10^3/uL (4.4-10.8)
[2016-08-26 07:35] LABS: Albumin 2.4 g/dL (3.4-5.0); BUN/Creatinine Ratio 3.6; Bilirubin, Total 2.8 mg/dL (0.2-1.0); Calcium 8.3 mg/dL (8.5-10.1); Magnesium 2.3 mg/dL (1.6-2.6); Phosphorus 3.9 mg/dL (2.5-4.90); Potassium 3.2 mmol/L (3.5-5.1); Total Protein 4.4 g/dL (6.4-8.2)
[2016-08-26 07:41] LABS: Metamyelocytes % 0; Myelocytes % 0; Promyelocytes % 0; Reactive Lymphocytes 0
[2016-08-26 08:18] LABS: Anisocytosis Slight; Platelet Estimate Decreased; Polychromasia Moderate; Schistocytes FEW
[2016-08-26] MEDS: PRO-STAT 64 30ML PO SCH ×2 (09:19→22:00)
[2016-08-26] MEDS: SODIUM CHLOR 0.9% PF (SALINE LOCK) 10ML VIAL IV SCH ×2 (09:37→22:40)
[2016-08-26] MEDS: RIFAXIMIN 550 MG TAB PO SCH ×2 (09:38→22:40)
[2016-08-26] MEDS: PANTOPRAZOLE 40 MG TAB PO SCH (09:38)
[2016-08-26] MEDS: CITALOPRAM HYDROBR 20 MG TAB PO SCH (09:38)
[2016-08-26] MEDS ORDERED: DESMOPRESSIN INJECTION 20 MCG in SODIUM CHL 0.9% 50 ML IV ONE (13:15)
[2016-08-26 14:15] LABS: DEFINITIVE VIEW TRANSMISSION; Hematocrit 21.8 % (36.0-46.0); Hemoglobin 7.3 g/dL (12.2-16.2); Mean Corpuscular Hemoglobin 30.3 pg (28.0-32.0); Mean Corpuscular Hgb Conc. 33.5 g/dL (32.0-36.0); Mean Corpuscular Volume 90.5 fL (80.0-100.0); Mean Platelet Volume 9.4 fL (7.4-10.4); Platelet Count (auto) 64 10^3/uL (140-450); Red Cell Distribution Width 16.9 % (11.6-16.0)
[2016-08-26 14:27] LABS: Metamyelocytes % 0; Myelocytes % 0; Promyelocytes % 0; Reactive Lymphocytes 0
[2016-08-26 14:54] LABS: Albumin 2.2 g/dL (3.4-5.0); BUN/Creatinine Ratio 3.4; Bilirubin, Total 2.5 mg/dL (0.2-1.0); Calcium 8.3 mg/dL (8.5-10.1); Potassium 3.2 mmol/L (3.5-5.1); Total Protein 4.3 g/dL (6.4-8.2)
[2016-08-26 15:16] LABS: INR 1.47 (0.9-1.15); Prothrombin Time 15.9 sec (9.37-12.3)
[2016-08-26 16:18] LABS: Anisocytosis Marked; Platelet Estimate Decreased
[2016-08-26 16:19] LABS: Macrocytosis Moderate; Ovalocytes FEW; Polychromasia Slight
[2016-08-26 17:35] LABS: Fibrinogen 67.7 mg/dL (177-375)
[2016-08-27] VITALS (18 sets, daily range): BP systolic 84–119; BP diastolic 53–88
[2016-08-27] MEDS: IPRATROPIUM BROM 0.5 MG/2.5ML INH SOL NEB SCH ×4 (00:04→18:13)
[2016-08-27] MEDS: ALBUTEROL SULF 2.5 MG/0.5ML(0.5%) NEB SOLN NEB SCH ×4 (00:04→18:13)
[2016-08-27 05:44] LABS: Basophils # (auto) 0.1 uL; Basophils % (auto) 0.5 % (0.0-2.0); DEFINITIVE VIEW TRANSMISSION; Eosinophils # (auto) 0.4 uL; Eosinophils % (auto) 3.3 % (0.0-7.0); Hematocrit 22.5 % (36.0-46.0); Hemoglobin 7.5 g/dL (12.2-16.2); Lymphocytes # (auto) 1.5 uL; Lymphocytes % (auto) 12.3 % (10.0-50.0); Mean Corpuscular Hemoglobin 30.3 pg (28.0-32.0); Mean Corpuscular Hgb Conc. 33.3 g/dL (32.0-36.0); Mean Platelet Volume 9.6 fL (7.4-10.4); Monocytes # (auto) 1.9 uL; Monocytes % (auto) 15.8 % (0.0-12.0); Neutrophils # (auto) 8.2 uL; Neutrophils % (auto) 68.1 % (37.0-80.0); Platelet Count (auto) 70 10^3/uL (140-450); Red Cell Distribution Width 17.5 % (11.6-16.0); White Blood Cell 12.1 10^3/uL (4.4-10.8)
[2016-08-27 05:47] LABS: Partial Thromboplastin Time 33.5 sec (22.64-33.71)
[2016-08-27 05:48] LABS: Nucleated Red Blood Cells % 6.3 %
[2016-08-27 05:49] LABS: INR 1.5 (0.9-1.15); Prothrombin Time 16.2 sec (9.37-12.3)
[2016-08-27 05:52] LABS: Albumin 2.2 g/dL (3.4-5.0); BUN/Creatinine Ratio 3.5; Calcium 7.9 mg/dL (8.5-10.1); Potassium 3.2 mmol/L (3.5-5.1)
[2016-08-27 05:54] LABS: Bilirubin, Total 2.4 mg/dL (0.2-1.0); Total Protein 4.4 g/dL (6.4-8.2)
[2016-08-27] MEDS: ACCU-CHEK COMFORT CURVE STRIP VI SCH ×4 (06:55→22:00)
[2016-08-27] MEDS: SUCRALFATE 1 GM TAB PO SCH ×4 (06:56→23:11)
[2016-08-27] MEDS: InsuLIN REG 1unit/0.01ml Soln (100units/ml) SC SCH ×4 (06:56→22:00)
[2016-08-27] MEDS: FERROUS SULFATE 325 MG TAB PO SCH ×2 (08:00→18:00)
[2016-08-27] MEDS ORDERED: EPOETIN ALFA 10,000 UNIT/1 ML VIAL IV ONE (08:00)
[2016-08-27] MEDS ORDERED: SODIUM CHL 0.9% 1000 ML BAG XX ONE (08:00)
[2016-08-27 08:04] LABS: Basophils # (auto) 0 uL; Basophils % (auto) 0.4 % (0.0-2.0); DEFINITIVE VIEW TRANSMISSION; Eosinophils # (auto) 0 uL; Hemoglobin 7.7 g/dL (12.2-16.2); Lymphocytes # (auto) 1.8 uL; Lymphocytes % (auto) 15.8 % (10.0-50.0); Mean Corpuscular Hemoglobin 31.7 pg (28.0-32.0); Mean Corpuscular Hgb Conc. 34.8 g/dL (32.0-36.0); Mean Corpuscular Volume 91.1 fL (80.0-100.0); Mean Platelet Volume 9.5 fL (7.4-10.4); Monocytes # (auto) 1.7 uL; Monocytes % (auto) 14.6 % (0.0-12.0); Neutrophils % (auto) 69.2 % (37.0-80.0); Platelet Count (auto) 64 10^3/uL (140-450); Red Cell Distribution Width 17.3 % (11.6-16.0); White Blood Cell 11.6 10^3/uL (4.4-10.8)
[2016-08-27 08:27] LABS: Albumin 2.1 g/dL (3.4-5.0); BUN/Creatinine Ratio 3.4; Bilirubin, Total 2.2 mg/dL (0.2-1.0); Calcium 7.9 mg/dL (8.5-10.1); Potassium 3.3 mmol/L (3.5-5.1); Total Protein 4.2 g/dL (6.4-8.2)
[2016-08-27 09:51] LABS: Platelet Estimate Decreased
[2016-08-27 09:52] LABS: Polychromasia Slight
[2016-08-27 09:53] LABS: Anisocytosis Moderate
[2016-08-27] MEDS: PRO-STAT 64 30ML PO SCH ×2 (10:00→22:00)
[2016-08-27] MEDS: SODIUM CHLOR 0.9% PF (SALINE LOCK) 10ML VIAL IV SCH ×2 (10:00→23:11)
[2016-08-27] MEDS ORDERED: MIDAZOLAM HCL 5 MG/ML-1ML VIAL ONE (10:06)
[2016-08-27] MEDS ORDERED: fentaNYL CITRATE 100 MCG/2 ML VL ONE (10:06)
[2016-08-27] MEDS ORDERED: SODIUM CHLORIDE LOCK 10 ML ONE (10:06)
[2016-08-27] MEDS ORDERED: LIDOCAINE VISCOUS 2% 15ML UD ONE (10:06)
[2016-08-27] MEDS ORDERED: diphenhdrAMINE HCL 50 MG/1 ML VL ONE (10:07)
[2016-08-27] MEDS ORDERED: LIDOCAINE VISCOUS 2% 15ML UD MT ONE (13:13)
[2016-08-27] MEDS ORDERED: fentaNYL CITRATE 100 MCG/2 ML VL IV ONE ×2 (13:17→13:20)
[2016-08-27] MEDS ORDERED: MIDAZOLAM HCL 5 MG/ML-1ML VIAL IV ONE ×2 (13:17→13:20)
[2016-08-27] MEDS: CITALOPRAM HYDROBR 20 MG TAB PO SCH (14:27)
[2016-08-27] MEDS: PANTOPRAZOLE 40 MG TAB PO SCH (14:27)
[2016-08-27] MEDS: RIFAXIMIN 550 MG TAB PO SCH ×2 (14:27→23:11)
[2016-08-28] VITALS (26 sets, daily range): BP systolic 91–117; BP diastolic 49–69
[2016-08-28] MEDS: MORPHINE SULF INJ 2 MG/ML SYRINGE 1ML IV PRN (05:39)
[2016-08-28] MEDS: InsuLIN REG 1unit/0.01ml Soln (100units/ml) SC SCH ×4 (06:42→21:43)
[2016-08-28] MEDS: ACCU-CHEK COMFORT CURVE STRIP VI SCH ×4 (06:42→21:43)
[2016-08-28] MEDS: SUCRALFATE 1 GM TAB PO SCH ×4 (06:42→21:41)
[2016-08-28] MEDS: IPRATROPIUM BROM 0.5 MG/2.5ML INH SOL NEB SCH ×4 (06:53→18:00)
[2016-08-28] MEDS: ALBUTEROL SULF 2.5 MG/0.5ML(0.5%) NEB SOLN NEB SCH ×4 (06:53→18:00)
[2016-08-28] MEDS: HYDROcodone-ACET 5/325MG TAB PO PRN (08:01)
[2016-08-28] MEDS: FERROUS SULFATE 325 MG TAB PO SCH ×2 (08:01→18:16)
[2016-08-28] MEDS: PRO-STAT 64 30ML PO SCH ×2 (10:00→21:42)
[2016-08-28] MEDS: SODIUM CHLOR 0.9% PF (SALINE LOCK) 10ML VIAL IV SCH ×2 (10:12→21:42)
[2016-08-28] MEDS: CITALOPRAM HYDROBR 20 MG TAB PO SCH (10:13)
[2016-08-28] MEDS: PANTOPRAZOLE 40 MG TAB PO SCH (10:13)
[2016-08-28] MEDS: RIFAXIMIN 550 MG TAB PO SCH ×2 (10:13→21:41)
[2016-08-28 10:54] LABS: DEFINITIVE VIEW TRANSMISSION; Hematocrit 22.7 % (36.0-46.0); Hemoglobin 7.6 g/dL (12.2-16.2); Mean Corpuscular Hgb Conc. 33.4 g/dL (32.0-36.0); Mean Corpuscular Volume 89.7 fL (80.0-100.0); Platelet Count (auto) 44 10^3/uL (140-450); Red Cell Distribution Width 17.1 % (11.6-16.0); White Blood Cell 9.1 10^3/uL (4.4-10.8)
[2016-08-28 10:57] LABS: Albumin 2.2 g/dL (3.4-5.0); Bilirubin, Total 2.9 mg/dL (0.2-1.0); Calcium 7.9 mg/dL (8.5-10.1); Potassium 3.3 mmol/L (3.5-5.1); Total Protein 4.6 g/dL (6.4-8.2)
[2016-08-28 11:00] LABS: Metamyelocytes % 0; Myelocytes % 0; Promyelocytes % 0; Reactive Lymphocytes 0
[2016-08-28 11:52] LABS: Partial Thromboplastin Time 33.4 sec (22.64-33.71)
[2016-08-28 12:24] LABS: INR 1.3 (0.9-1.15)
[2016-08-28 15:23] LABS: Anisocytosis Moderate; Platelet Estimate Decreased
[2016-08-28 15:24] LABS: Burr Cells MODERATE; Tear Drop Cells FEW
[2016-08-29] VITALS (28 sets, daily range): BP systolic 83–124; BP diastolic 45–72
[2016-08-29] MEDS: IPRATROPIUM BROM 0.5 MG/2.5ML INH SOL NEB SCH ×4 (00:05→19:25)
[2016-08-29] MEDS: ALBUTEROL SULF 2.5 MG/0.5ML(0.5%) NEB SOLN NEB SCH ×4 (00:05→19:25)
[2016-08-29 05:24] LABS: Basophils # (auto) 0.1 uL; Basophils % (auto) 0.9 % (0.0-2.0); DEFINITIVE VIEW TRANSMISSION; Eosinophils # (auto) 0 uL; Hematocrit 20.8 % (36.0-46.0); Lymphocytes # (auto) 1.3 uL; Lymphocytes % (auto) 16.8 % (10.0-50.0); Mean Corpuscular Hemoglobin 30.2 pg (28.0-32.0); Mean Corpuscular Hgb Conc. 32.8 g/dL (32.0-36.0); Mean Corpuscular Volume 91.9 fL (80.0-100.0); Mean Platelet Volume 9.3 fL (7.4-10.4); Monocytes # (auto) 1.4 uL; Monocytes % (auto) 17.5 % (0.0-12.0); Neutrophils # (auto) 5.2 uL; Neutrophils % (auto) 64.8 % (37.0-80.0); Platelet Count (auto) 43 10^3/uL (140-450); Red Cell Distribution Width 17.9 % (11.6-16.0); SUSPECT VIEW TRANSMISSION
[2016-08-29 05:30] LABS: Hemoglobin 6.8 g/dL (12.2-16.2)
[2016-08-29 05:42] LABS: BUN/Creatinine Ratio 3.2
[2016-08-29 05:48] LABS: Potassium 2.9 mmol/L (3.5-5.1)
[2016-08-29] MEDS: SUCRALFATE 1 GM TAB PO SCH ×4 (05:59→21:12)
[2016-08-29] MEDS: ACCU-CHEK COMFORT CURVE STRIP VI SCH ×4 (06:16→21:13)
[2016-08-29] MEDS: InsuLIN REG 1unit/0.01ml Soln (100units/ml) SC SCH ×5 (06:17→21:44)
[2016-08-29] MEDS ORDERED: EPOETIN ALFA 10,000 UNIT/1 ML VIAL IV ONE (08:00)
[2016-08-29] MEDS ORDERED: SODIUM CHL 0.9% 1000 ML BAG XX ONE (08:00)
[2016-08-29] MEDS: FERROUS SULFATE 325 MG TAB PO SCH ×2 (08:42→17:17)
[2016-08-29] MEDS: PANTOPRAZOLE 40 MG TAB PO SCH (08:42)
[2016-08-29] MEDS: CITALOPRAM HYDROBR 20 MG TAB PO SCH (10:17)
[2016-08-29] MEDS: PRO-STAT 64 30ML PO SCH ×2 (10:18→21:12)
[2016-08-29] MEDS: SODIUM CHLOR 0.9% PF (SALINE LOCK) 10ML VIAL IV SCH ×2 (10:18→21:12)
[2016-08-29] MEDS: RIFAXIMIN 550 MG TAB PO SCH ×2 (10:21→21:12)
[2016-08-29] MEDS: HYDROcodone-ACET 5/325MG TAB PO PRN (11:56)
[2016-08-29] MEDS ORDERED: DESMOPRESSIN INJECTION 20 MCG in SODIUM CHL 0.9% 50 ML IV ONE (13:00)
[2016-08-29] MEDS: PHYTONADIONE ORAL Susp 10 mg/10ml PO SCH (14:36)
[2016-08-30] VITALS (20 sets, daily range): BP systolic 94–117; BP diastolic 44–66
[2016-08-30] MEDS: HYDROcodone-ACET 5/325MG TAB PO PRN (05:02)
[2016-08-30 05:15] LABS: Basophils # (auto) 0.1 uL; Basophils % (auto) 0.7 % (0.0-2.0); DEFINITIVE VIEW TRANSMISSION; Eosinophils # (auto) 0.1 uL; Eosinophils % (auto) 1.1 % (0.0-7.0); Hematocrit 20.4 % (36.0-46.0); Lymphocytes # (auto) 1.5 uL; Lymphocytes % (auto) 13.5 % (10.0-50.0); Mean Corpuscular Hemoglobin 29.8 pg (28.0-32.0); Mean Corpuscular Hgb Conc. 32.8 g/dL (32.0-36.0); Mean Corpuscular Volume 90.8 fL (80.0-100.0); Mean Platelet Volume 8.8 fL (7.4-10.4); Monocytes # (auto) 1.8 uL; Monocytes % (auto) 16.7 % (0.0-12.0); Neutrophils # (auto) 7.4 uL; Platelet Count (auto) 83 10^3/uL (140-450); Red Cell Distribution Width 17.4 % (11.6-16.0); White Blood Cell 10.8 10^3/uL (4.4-10.8)
[2016-08-30 05:21] LABS: Hemoglobin 6.7 g/dL (12.2-16.2)
[2016-08-30 05:27] LABS: Partial Thromboplastin Time 32.8 sec (22.64-33.71)
[2016-08-30 05:31] LABS: INR 1.43 (0.9-1.15); Prothrombin Time 15.4 sec (9.37-12.3)
[2016-08-30 05:35] LABS: Albumin 2.2 g/dL (3.4-5.0); BUN/Creatinine Ratio 2.6; Bilirubin, Total 2.6 mg/dL (0.2-1.0); Potassium 3.2 mmol/L (3.5-5.1); Total Protein 4.4 g/dL (6.4-8.2)
[2016-08-30 05:59] LABS: Fibrinogen 95.2 mg/dL (177-375)
[2016-08-30] MEDS: ACCU-CHEK COMFORT CURVE STRIP VI SCH ×4 (06:08→21:46)
[2016-08-30] MEDS: SUCRALFATE 1 GM TAB PO SCH ×4 (06:08→21:45)
[2016-08-30] MEDS: InsuLIN REG 1unit/0.01ml Soln (100units/ml) SC SCH ×4 (06:08→21:48)
[2016-08-30] MEDS: IPRATROPIUM BROM 0.5 MG/2.5ML INH SOL NEB SCH ×4 (07:45→18:00)
[2016-08-30] MEDS: ALBUTEROL SULF 2.5 MG/0.5ML(0.5%) NEB SOLN NEB SCH ×4 (07:45→18:00)
[2016-08-30] MEDS: FERROUS SULFATE 325 MG TAB PO SCH ×2 (08:14→17:34)
[2016-08-30] MEDS: PRO-STAT 64 30ML PO SCH ×2 (09:34→21:45)
[2016-08-30] MEDS: CITALOPRAM HYDROBR 20 MG TAB PO SCH (09:35)
[2016-08-30] MEDS: SODIUM CHLOR 0.9% PF (SALINE LOCK) 10ML VIAL IV SCH ×2 (09:35→21:46)
[2016-08-30] MEDS: PANTOPRAZOLE 40 MG TAB PO SCH (09:35)
[2016-08-30] MEDS: RIFAXIMIN 550 MG TAB PO SCH ×2 (09:35→21:45)
[2016-08-30] MEDS: PHYTONADIONE ORAL Susp 10 mg/10ml PO SCH (09:36)
[2016-08-30] MEDS ORDERED: DESMOPRESSIN INJECTION 20 MCG in SODIUM CHL 0.9% 50 ML IV ONE (12:30)
[2016-08-31] MEDS: IPRATROPIUM BROM 0.5 MG/2.5ML INH SOL NEB SCH ×4 (00:30→18:33)
[2016-08-31] MEDS: ALBUTEROL SULF 2.5 MG/0.5ML(0.5%) NEB SOLN NEB SCH ×4 (00:31→18:33)
[2016-08-31] MEDS: HYDROcodone-ACET 5/325MG TAB PO PRN ×2 (00:53→19:53)
[2016-08-31] MEDS: TEMAZEPAM 15 MG CAP PO PRN (00:53)
[2016-08-31 04:05] VITALS: BP 113/58
[2016-08-31 05:03] LABS: Basophils # (auto) 0.1 uL; DEFINITIVE VIEW TRANSMISSION; Eosinophils # (auto) 0.2 uL; Eosinophils % (auto) 2.6 % (0.0-7.0); Hematocrit 24.5 % (36.0-46.0); Lymphocytes # (auto) 1.8 uL; Mean Corpuscular Hemoglobin 29.1 pg (28.0-32.0); Mean Corpuscular Hgb Conc. 32.8 g/dL (32.0-36.0); Mean Corpuscular Volume 88.7 fL (80.0-100.0); Mean Platelet Volume 9.2 fL (7.4-10.4); Monocytes # (auto) 1.6 uL; Monocytes % (auto) 17.7 % (0.0-12.0); Neutrophils # (auto) 5.3 uL; Neutrophils % (auto) 58.7 % (37.0-80.0); Platelet Count (auto) 76 10^3/uL (140-450); Red Cell Distribution Width 17.7 % (11.6-16.0); White Blood Cell 8.9 10^3/uL (4.4-10.8)
[2016-08-31 05:30] LABS: Albumin 2.4 g/dL (3.4-5.0); Calcium 8.5 mg/dL (8.5-10.1)
[2016-08-31 05:34] LABS: BUN/Creatinine Ratio 2.5; Total Protein 5.2 g/dL (6.4-8.2)
[2016-08-31 05:53] LABS: INR 1.27 (0.9-1.15); Partial Thromboplastin Time 31.7 sec (22.64-33.71); Prothrombin Time 13.7 sec (9.37-12.3)
[2016-08-31] MEDS: ACCU-CHEK COMFORT CURVE STRIP VI SCH ×4 (05:57→21:09)
[2016-08-31] MEDS: SUCRALFATE 1 GM TAB PO SCH ×4 (06:04→21:09)
[2016-08-31] MEDS: InsuLIN REG 1unit/0.01ml Soln (100units/ml) SC SCH ×4 (06:05→22:00)
[2016-08-31 06:35] LABS: Fibrinogen 222.1 mg/dL (177-375)
[2016-08-31 08:00] VITALS: BP 112/57
[2016-08-31] MEDS ORDERED: SODIUM CHL 0.9% 1000 ML BAG XX ONE (08:00)
[2016-08-31] MEDS ORDERED: EPOETIN ALFA 10,000 UNIT/1 ML VIAL IV ONE (08:00)
[2016-08-31] MEDS: PANTOPRAZOLE 40 MG TAB PO SCH (10:05)
[2016-08-31] MEDS: CITALOPRAM HYDROBR 20 MG TAB PO SCH (10:06)
[2016-08-31] MEDS: FERROUS SULFATE 325 MG TAB PO SCH ×2 (10:06→18:00)
[2016-08-31] MEDS: SODIUM CHLOR 0.9% PF (SALINE LOCK) 10ML VIAL IV SCH ×2 (10:07→21:09)
[2016-08-31] MEDS: PRO-STAT 64 30ML PO SCH ×2 (10:07→21:09)
[2016-08-31] MEDS: PHYTONADIONE ORAL Susp 10 mg/10ml PO SCH (10:08)
[2016-08-31] MEDS: RIFAXIMIN 550 MG TAB PO SCH ×2 (10:10→21:09)
[2016-08-31] MEDS ORDERED: POTASSIUM CHL 20 Meq TABLET PO ONE (11:15)
[2016-08-31 12:00] VITALS: BP 110/57
[2016-08-31 16:00] VITALS: BP 116/75
[2016-08-31 20:00] VITALS: BP 115/66
[2016-09-01] VITALS (7 sets, daily range): BP systolic 105–129; BP diastolic 58–76
[2016-09-01 05:14] LABS: DEFINITIVE VIEW TRANSMISSION; Hematocrit 22.5 % (36.0-46.0); Hemoglobin 7.3 g/dL (12.2-16.2); Mean Corpuscular Hemoglobin 29.4 pg (28.0-32.0); Mean Corpuscular Hgb Conc. 32.4 g/dL (32.0-36.0); Mean Corpuscular Volume 90.5 fL (80.0-100.0); Mean Platelet Volume 9.8 fL (7.4-10.4); Platelet Count (auto) 60 10^3/uL (140-450); SUSPECT VIEW TRANSMISSION; White Blood Cell 9.9 10^3/uL (4.4-10.8)
[2016-09-01] MEDS: SUCRALFATE 1 GM TAB PO SCH ×4 (05:22→23:20)
[2016-09-01] MEDS: ACCU-CHEK COMFORT CURVE STRIP VI SCH ×4 (05:22→22:00)
[2016-09-01 05:27] LABS: Metamyelocytes % 0; Myelocytes % 0; Promyelocytes % 0; Reactive Lymphocytes 0
[2016-09-01 05:33] LABS: Albumin 2.1 g/dL (3.4-5.0); BUN/Creatinine Ratio 2.3; Calcium 8.1 mg/dL (8.5-10.1); Potassium 3.3 mmol/L (3.5-5.1)
[2016-09-01 05:36] LABS: Bilirubin, Total 2.8 mg/dL (0.2-1.0); Total Protein 4.6 g/dL (6.4-8.2)
[2016-09-01 05:43] LABS: INR 1.36 (0.9-1.15); Partial Thromboplastin Time 32.4 sec (22.64-33.71); Prothrombin Time 14.7 sec (9.37-12.3)
[2016-09-01] MEDS: InsuLIN REG 1unit/0.01ml Soln (100units/ml) SC SCH ×4 (06:04→22:00)
[2016-09-01] MEDS: IPRATROPIUM BROM 0.5 MG/2.5ML INH SOL NEB SCH ×4 (06:59→18:20)
[2016-09-01] MEDS: ALBUTEROL SULF 2.5 MG/0.5ML(0.5%) NEB SOLN NEB SCH ×4 (06:59→18:20)
[2016-09-01 07:17] LABS: Fibrinogen 145.7 mg/dL (177-375)
[2016-09-01] MEDS: PHYTONADIONE ORAL Susp 10 mg/10ml PO SCH (10:00)
[2016-09-01] MEDS: PRO-STAT 64 30ML PO SCH ×2 (10:00→22:00)
[2016-09-01 10:05] LABS: Large Platelets FEW; Platelet Estimate Decreased
[2016-09-01] MEDS ORDERED: EPOETIN ALFA 10,000 UNIT/1 ML VIAL IV ONE (10:30)
[2016-09-01] MEDS ORDERED: SODIUM CHL 0.9% 1000 ML BAG XX ONE (10:30)
[2016-09-01] MEDS ORDERED: ALBUMIN 25% 100 ML IV PRN (10:30)
[2016-09-01] MEDS ORDERED: POTASSIUM CHL 20 Meq TABLET PO ONE (10:30)
[2016-09-01] MEDS: RIFAXIMIN 550 MG TAB PO SCH ×2 (11:16→23:20)
[2016-09-01] MEDS: CITALOPRAM HYDROBR 20 MG TAB PO SCH (11:16)
[2016-09-01] MEDS: PANTOPRAZOLE 40 MG TAB PO SCH (11:16)
[2016-09-01] MEDS: FERROUS SULFATE 325 MG TAB PO SCH ×2 (11:16→18:03)
[2016-09-01] MEDS: SODIUM CHLOR 0.9% PF (SALINE LOCK) 10ML VIAL IV SCH ×2 (16:48→23:20)
[2016-09-02] VITALS (12 sets, daily range): BP systolic 114–128; BP diastolic 67–85
[2016-09-02] MEDS: IPRATROPIUM BROM 0.5 MG/2.5ML INH SOL NEB SCH ×5 (06:00→22:39)
[2016-09-02] MEDS: ALBUTEROL SULF 2.5 MG/0.5ML(0.5%) NEB SOLN NEB SCH ×5 (06:00→22:39)
[2016-09-02] MEDS: InsuLIN REG 1unit/0.01ml Soln (100units/ml) SC SCH ×4 (06:30→21:59)
[2016-09-02] MEDS: SUCRALFATE 1 GM TAB PO SCH ×4 (06:30→21:50)
[2016-09-02] MEDS: ACCU-CHEK COMFORT CURVE STRIP VI SCH ×4 (06:30→21:59)
[2016-09-02 06:36] LABS: DEFINITIVE VIEW TRANSMISSION; Hemoglobin 7.3 g/dL (12.2-16.2); Mean Corpuscular Hgb Conc. 31.6 g/dL (32.0-36.0); Mean Corpuscular Volume 91.5 fL (80.0-100.0); Platelet Count (auto) 80 10^3/uL (140-450); Red Cell Distribution Width 18.1 % (11.6-16.0); SUSPECT VIEW TRANSMISSION; White Blood Cell 9.9 10^3/uL (4.4-10.8)
[2016-09-02 06:51] LABS: BUN/Creatinine Ratio 2.5; Calcium 8.2 mg/dL (8.5-10.1); Potassium 3.4 mmol/L (3.5-5.1)
[2016-09-02 06:52] LABS: Partial Thromboplastin Time 33.9 sec (22.64-33.71)
[2016-09-02 06:54] LABS: Bilirubin, Total 2.3 mg/dL (0.2-1.0); Total Protein 4.6 g/dL (6.4-8.2)
[2016-09-02 06:59] LABS: INR 1.37 (0.9-1.15); Metamyelocytes % 0; Myelocytes % 0; Promyelocytes % 0; Prothrombin Time 14.8 sec (9.37-12.3); Reactive Lymphocytes 0
[2016-09-02 08:52] LABS: Fibrinogen 112.3 mg/dL (177-375)
[2016-09-02] MEDS: FERROUS SULFATE 325 MG TAB PO SCH ×2 (08:56→18:01)
[2016-09-02] MEDS: SODIUM CHLOR 0.9% PF (SALINE LOCK) 10ML VIAL IV SCH ×2 (10:00→21:50)
[2016-09-02] MEDS: PRO-STAT 64 30ML PO SCH ×2 (10:00→21:50)
[2016-09-02 11:29] LABS: Platelet Estimate Decreased
[2016-09-02 11:33] LABS: Burr Cells FEW; Hypochromia Moderate; Polychromasia Slight
[2016-09-02 11:34] LABS: Schistocytes FEW
[2016-09-02] MEDS ORDERED: LIDOCAINE 2%HCL (LOCAL ANESTH.) INJ 20ML MDV IJ ONE (13:45)
[2016-09-02] MEDS: PANTOPRAZOLE 40 MG TAB PO SCH (16:31)
[2016-09-02] MEDS: CITALOPRAM HYDROBR 20 MG TAB PO SCH (16:31)
[2016-09-02] MEDS: RIFAXIMIN 550 MG TAB PO SCH ×2 (16:32→21:50)
[2016-09-02] MEDS: PHYTONADIONE ORAL Susp 10 mg/10ml PO SCH (16:32)
[2016-09-02] MEDS: MORPHINE SULF INJ 2 MG/ML SYRINGE 1ML IV PRN (20:32)
[2016-09-02] MEDS: HYDROcodone-ACET 5/325MG TAB PO PRN (21:59)
== END 2016-09-02 23:22 | disposition short-term general hospital (02) | DRG 862 ==
LOC: ER 15:24 → TELE-WESTW 15:25 → DOU IN ICU 08-24 19:48
PROVIDERS: ADMIT Internal Medicine; ATTEND Family Medicine
PROC: 02HV33Z Insertion of Infusion Device into Superior Vena Cava, Percutaneous Approach (ICD-10-PCS; principal; 2016-08-21)
PROC: 30233N1 Transfusion of Nonautologous Red Blood Cells into Peripheral Vein, Percutaneous Approach (ICD-10-PCS; 2016-08-21)
PROC: 5A1D60Z (ICD-10-PCS; 2016-08-22)
PROC: 30233L1 Transfusion of Nonautologous Fresh Plasma into Peripheral Vein, Percutaneous Approach (ICD-10-PCS; 2016-08-24)
PROC: 30233R1 Transfusion of Nonautologous Platelets into Peripheral Vein, Percutaneous Approach (ICD-10-PCS; 2016-08-24)
PROC: 30233K1 Transfusion of Nonautologous Frozen Plasma into Peripheral Vein, Percutaneous Approach (ICD-10-PCS; 2016-08-24)
PROC: 0DJ08ZZ Inspection of Upper Intestinal Tract, Via Natural or Artificial Opening Endoscopic (ICD-10-PCS; 2016-08-27)
PROC: 30233M1 Transfusion of Nonautologous Plasma Cryoprecipitate into Peripheral Vein, Percutaneous Approach (ICD-10-PCS; 2016-08-27)
DX: T81.4XXA Infection following a procedure, initial encounter (principal); N18.6 End stage renal disease; E43 Unspecified severe protein-calorie malnutrition; K76.6 Portal hypertension; D68.8 Other specified coagulation defects; I13.2 Hypertensive heart and chronic kidney disease with heart failure and with stage 5 chronic kidney disease, or end stage renal disease; Z68.41 Body mass index [BMI] 40.0-44.9, adult; R18.8 Other ascites; D68.9 Coagulation defect, unspecified; M86.9 Osteomyelitis, unspecified; M00.9 Pyogenic arthritis, unspecified; D64.9 Anemia, unspecified; E11.22 Type 2 diabetes mellitus with diabetic chronic kidney disease; I25.10 Atherosclerotic heart disease of native coronary artery without angina pectoris; I48.91 Unspecified atrial fibrillation; E66.01 Morbid (severe) obesity due to excess calories; E87.6 Hypokalemia; F17.210 Nicotine dependence, cigarettes, uncomplicated; I50.9 Heart failure, unspecified; K21.9 Gastro-esophageal reflux disease without esophagitis; B18.2 Chronic viral hepatitis C; F19.10 Other psychoactive substance abuse, uncomplicated; E11.65 Type 2 diabetes mellitus with hyperglycemia; D69.59 Other secondary thrombocytopenia; K74.60 Unspecified cirrhosis of liver; E11.21 Type 2 diabetes mellitus with diabetic nephropathy; K31.89 Other diseases of stomach and duodenum; Y83.8 Other surgical procedures as the cause of abnormal reaction of the patient, or of later complication, without mention of misadventure at the time of the procedure; E11.40 Type 2 diabetes mellitus with diabetic neuropathy, unspecified; K44.9 Diaphragmatic hernia without obstruction or gangrene; E11.69 Type 2 diabetes mellitus with other specified complication; Y82.8 Other medical devices associated with adverse incidents; X58.XXXA Exposure to other specified factors, initial encounter; Y79.3 Surgical instruments, materials and orthopedic devices (including sutures) associated with adverse incidents; Y92.89 Other specified places as the place of occurrence of the external cause; Z99.2 Dependence on renal dialysis; Z82.3 Family history of stroke; Z82.49 Family history of ischemic heart disease and other diseases of the circulatory system; Z83.3 Family history of diabetes mellitus; Z79.899 Other long term (current) drug therapy; Z90.49 Acquired absence of other specified parts of digestive tract; Z83.6 Family history of other diseases of the respiratory system; Z80.8 Family history of malignant neoplasm of other organs or systems; Z84.89 Family history of other specified conditions; Z80.49 Family history of malignant neoplasm of other genital organs; Y93.89 Activity, other specified; Y99.8 Other external cause status
CPT/HCPCS: 36415; 36430; 36569; 43235; 71010; 80048; 80053; 80061; 82140; 82270; 82378; 82962; 83036; 83615; 83735; 84100; 84484; 85007; 85014; 85018; 85025; 85027; 85045; 85384; 85610; 85652; 85730; 86141; 86803; 86850; 86900; 86901; 86920; 87081; 90935; 93005; 93971; 94640; 96361; 96374; 99291; C9113; J0885; J1642; J2250; J3430

== ENCOUNTER 2016-10-08 21:03 | Inpatient (IN) | payer OTHER ==
[~2016-10-08] VITALS: Ht 170.2 cm; Wt 107.0 kg
[~2016-10-08 21:03] MED LIST changes: +CITA10TA59 PO; -FUR40T PO; +FURO40TA4 PO; -LAC30LQ PO; -METO50TA7 PO; +NITR0.4S29 SL; -ONDA4SOL2 PO; -Rifaximin PO; -SUCR1TAB38 PO; +SULF400T11 PO; -TRAM100T37 PO
[2016-10-08 22:00] VITALS: BP 111/62
[2016-10-08] MEDS ORDERED: NITROGLYCERIN 0.4 MG SL TAB SL PRN (22:15)
[2016-10-08] MEDS ORDERED: MORPHINE SULF INJ 2 MG/ML SYRINGE 1ML IV PRN (22:15)
[2016-10-08 22:25] VITALS: BP 116/66
[2016-10-08 23:23] LABS: DEFINITIVE VIEW TRANSMISSION; Hematocrit 27.4 % (36.0-46.0); Hemoglobin 9.1 g/dL (12.2-16.2); Mean Corpuscular Hemoglobin 29.6 pg (28.0-32.0); Mean Corpuscular Hgb Conc. 33.1 g/dL (32.0-36.0); Mean Corpuscular Volume 89.4 fL (80.0-100.0); Mean Platelet Volume 9.2 fL (7.4-10.4); Platelet Count (auto) 185 10^3/uL (140-450); SUSPECT VIEW TRANSMISSION; White Blood Cell 8.1 10^3/uL (4.4-10.8)
[2016-10-08 23:34] LABS: Red Cell Distribution Width 28.9 % (11.6-16.0)
[2016-10-08 23:35] LABS: Metamyelocytes % 0; Myelocytes % 0; Promyelocytes % 0; Reactive Lymphocytes 0
[2016-10-09 00:08] LABS: Hypersegmented Neutrophils Present; Platelet Estimate Adequate
[2016-10-09 00:09] LABS: Anisocytosis Marked; Burr Cells FEW
[2016-10-09 01:04] LABS: Albumin 2.5 g/dL (3.4-5.0); BUN/Creatinine Ratio 1.8; Calcium 8.6 mg/dL (8.5-10.1); Potassium 4.3 mmol/L (3.5-5.1)
[2016-10-09 01:06] LABS: Bilirubin, Total 4.6 mg/dL (0.2-1.0); Total Protein 6.4 g/dL (6.4-8.2)
[2016-10-09 01:08] LABS: INR 1.94 (0.9-1.15); Prothrombin Time 21.3 sec (9.37-12.3)
[2016-10-09 01:51] LABS: Partial Thromboplastin Time 46.5 sec (22.64-33.71)
[2016-10-09] MEDS ORDERED: CALCIUM CARB 500 MG CHEW TAB PO PRN (02:45)
[2016-10-09] MEDS ORDERED: ALBUTEROL SULF 2.5 MG/0.5ML(0.5%) NEB SOLN NEB PRN (02:45)
[2016-10-09 05:37] VITALS: BP 117/64
[2016-10-09 09:20] VITALS: BP 110/54
[2016-10-09] MEDS ORDERED: IPRATROPIUM BROM 0.5 MG/2.5ML INH SOL NEB PRN (10:30)
[2016-10-09] MEDS ORDERED: DEXTROSE (50%) 50ML SYRG IV PRN (10:30)
[2016-10-09] MEDS ORDERED: PANTOPRAZOLE 40 MG TAB PO ONE (11:00)
[2016-10-09] MEDS ORDERED: B-COMPLEX W/ C & FOLIC ACID(NEPHROVITE TAB) PO ONE (11:00)
[2016-10-09] MEDS ORDERED: MIDODRINE HCL 10 MG TAB PO ONE (11:00)
[2016-10-09] MEDS ORDERED: FUROSEMIDE 20 MG TAB PO ONE (11:00)
[2016-10-09] MEDS ORDERED: ASCORBIC ACID 500 MG TAB PO ONE (11:00)
[2016-10-09] MEDS: InsuLIN REG 1unit/0.01ml Soln (100units/ml) SC SCH ×3 (11:30→20:53)
[2016-10-09] MEDS: LACTULOSE 20Gm/30ML SOLN PO SCH (11:59)
[2016-10-09] MEDS: CITALOPRAM HYDROBR 20 MG TAB PO SCH (12:01)
[2016-10-09] MEDS: RIFAXIMIN 550 MG TAB PO SCH ×2 (12:01→20:45)
[2016-10-09] MEDS: ACCU-CHEK COMFORT CURVE STRIP VI SCH ×3 (12:01→20:46)
[2016-10-09] MEDS: HYDROcodone-ACET 10/325MG TAB PO PRN ×2 (12:02→18:20)
[2016-10-09 13:12] VITALS: BP 110/54
[2016-10-09 13:16] VITALS: BP 97/45
[2016-10-09 17:00] VITALS: BP 111/37
[2016-10-09] MEDS: PANTOPRAZOLE 40 MG TAB PO SCH (20:45)
[2016-10-09 21:56] VITALS: BP 95/52
[2016-10-10 05:00] VITALS: BP 97/44
[2016-10-10] MEDS: ACCU-CHEK COMFORT CURVE STRIP VI SCH ×4 (06:34→22:04)
[2016-10-10] MEDS: MIDODRINE HCL 10 MG TAB PO SCH (06:55)
[2016-10-10] MEDS: InsuLIN REG 1unit/0.01ml Soln (100units/ml) SC SCH ×4 (06:55→22:00)
[2016-10-10 06:59] LABS: Basophils # (auto) 0 uL; Basophils % (auto) 0.5 % (0.0-2.0); DEFINITIVE VIEW TRANSMISSION; Eosinophils # (auto) 0.3 uL; Eosinophils % (auto) 7.2 % (0.0-7.0); Hematocrit 38.1 % (36.0-46.0); Hemoglobin 12.4 g/dL (12.2-16.2); Lymphocytes # (auto) 1.5 uL; Lymphocytes % (auto) 33.7 % (10.0-50.0); Mean Corpuscular Hemoglobin 24.4 pg (28.0-32.0); Mean Corpuscular Hgb Conc. 32.6 g/dL (32.0-36.0); Mean Corpuscular Volume 74.8 fL (80.0-100.0); Mean Platelet Volume 8.2 fL (7.4-10.4); Monocytes # (auto) 0.4 uL; Monocytes % (auto) 9.5 % (0.0-12.0); Neutrophils # (auto) 2.2 uL; Neutrophils % (auto) 49.1 % (37.0-80.0); Platelet Count (auto) 345 10^3/uL (140-450); Red Cell Distribution Width 18.3 % (11.6-16.0); White Blood Cell 4.6 10^3/uL (4.4-10.8)
[2016-10-10] MEDS ORDERED: MIDODRINE HCL 10 MG TAB PO ONE (07:00)
[2016-10-10 07:19] LABS: Calcium 8.4 mg/dL (8.5-10.1); Potassium 4.8 mmol/L (3.5-5.1)
[2016-10-10 09:10] VITALS: BP 107/44
[2016-10-10] MEDS ORDERED: SODIUM CHL 0.9% 1000 ML BAG XX ONE ×2 (09:30)
[2016-10-10] MEDS: HYDROcodone-ACET 10/325MG TAB PO PRN ×3 (10:45→22:09)
[2016-10-10 12:03] VITALS: BP 99/53
[2016-10-10] MEDS: B-COMPLEX W/ C & FOLIC ACID(NEPHROVITE TAB) PO SCH (12:41)
[2016-10-10] MEDS: LACTULOSE 20Gm/30ML SOLN PO SCH (12:41)
[2016-10-10] MEDS: ASCORBIC ACID 500 MG TAB PO SCH (12:41)
[2016-10-10] MEDS: FUROSEMIDE 20 MG TAB PO SCH (12:41)
[2016-10-10] MEDS: CITALOPRAM HYDROBR 20 MG TAB PO SCH (12:42)
[2016-10-10] MEDS: PANTOPRAZOLE 40 MG TAB PO SCH ×2 (12:42→22:04)
[2016-10-10] MEDS: RIFAXIMIN 550 MG TAB PO SCH ×2 (12:49→22:04)
[2016-10-10 16:40] VITALS: BP 108/60
[2016-10-10 20:00] VITALS: BP 94/55
[2016-10-10 22:00] VITALS: BP 94/55
[2016-10-11] VITALS (7 sets, daily range): BP systolic 96–100; BP diastolic 44–56
[2016-10-11] MEDS: InsuLIN REG 1unit/0.01ml Soln (100units/ml) SC SCH ×4 (07:00→22:00)
[2016-10-11] MEDS: MIDODRINE HCL 10 MG TAB PO SCH (07:19)
[2016-10-11] MEDS: ACCU-CHEK COMFORT CURVE STRIP VI SCH ×4 (07:22→22:19)
[2016-10-11] MEDS: B-COMPLEX W/ C & FOLIC ACID(NEPHROVITE TAB) PO SCH (09:22)
[2016-10-11] MEDS: PANTOPRAZOLE 40 MG TAB PO SCH ×2 (09:22→22:16)
[2016-10-11] MEDS: ASCORBIC ACID 500 MG TAB PO SCH (09:22)
[2016-10-11] MEDS: CITALOPRAM HYDROBR 20 MG TAB PO SCH (09:22)
[2016-10-11] MEDS: LACTULOSE 20Gm/30ML SOLN PO SCH (09:23)
[2016-10-11] MEDS: RIFAXIMIN 550 MG TAB PO SCH ×2 (09:25→22:16)
[2016-10-11] MEDS: FUROSEMIDE 20 MG TAB PO SCH (10:00)
[2016-10-11] MEDS ORDERED: SODIUM CHL 0.9% 1000 ML BAG XX ONE (11:00)
[2016-10-11] MEDS: HYDROcodone-ACET 10/325MG TAB PO PRN ×2 (11:45→22:31)
[2016-10-12 05:00] VITALS: BP 116/60
[2016-10-12] MEDS: ACCU-CHEK COMFORT CURVE STRIP VI SCH ×2 (06:32→13:07)
[2016-10-12] MEDS: InsuLIN REG 1unit/0.01ml Soln (100units/ml) SC SCH ×2 (06:33→11:30)
[2016-10-12 08:00] VITALS: BP 98/44
[2016-10-12] MEDS: MIDODRINE HCL 10 MG TAB PO SCH (09:21)
[2016-10-12 09:45] VITALS: BP 106/62
[2016-10-12] MEDS: RIFAXIMIN 550 MG TAB PO SCH (10:00)
[2016-10-12] MEDS: LACTULOSE 20Gm/30ML SOLN PO SCH (10:00)
[2016-10-12] MEDS: HYDROcodone-ACET 10/325MG TAB PO PRN ×2 (12:48→16:50)
[2016-10-12 13:18] VITALS: BP 114/64
[2016-10-12] MEDS: PANTOPRAZOLE 40 MG TAB PO SCH (13:33)
[2016-10-12] MEDS: CITALOPRAM HYDROBR 20 MG TAB PO SCH (13:33)
[2016-10-12] MEDS: FUROSEMIDE 20 MG TAB PO SCH (13:33)
[2016-10-12] MEDS: B-COMPLEX W/ C & FOLIC ACID(NEPHROVITE TAB) PO SCH (13:33)
[2016-10-12] MEDS: ASCORBIC ACID 500 MG TAB PO SCH (13:34)
[2016-10-12 14:44] VITALS: BP 106/62
[2016-10-12 15:23] VITALS: BP 106/65
== END 2016-10-12 19:05 | disposition home or self-care (01) | DRG 813 ==
LOC: TELE-CENTR 21:03
PROVIDERS: ADMIT Internal Medicine; ATTEND Family Medicine
PROC: 5A1D60Z (ICD-10-PCS; principal; 2016-10-09)
DX: D68.9 Coagulation defect, unspecified (principal); N18.6 End stage renal disease; I13.2 Hypertensive heart and chronic kidney disease with heart failure and with stage 5 chronic kidney disease, or end stage renal disease; D61.818 Other pancytopenia; K75.9 Inflammatory liver disease, unspecified; K73.9 Chronic hepatitis, unspecified; E11.22 Type 2 diabetes mellitus with diabetic chronic kidney disease; F17.200 Nicotine dependence, unspecified, uncomplicated; K21.9 Gastro-esophageal reflux disease without esophagitis; K74.60 Unspecified cirrhosis of liver; T50.905A Adverse effect of unspecified drugs, medicaments and biological substances, initial encounter; I50.9 Heart failure, unspecified; E66.9 Obesity, unspecified; D64.9 Anemia, unspecified; S81.002A Unspecified open wound, left knee, initial encounter; X58.XXXA Exposure to other specified factors, initial encounter; Y93.89 Activity, other specified; Z99.2 Dependence on renal dialysis; Y92.89 Other specified places as the place of occurrence of the external cause; Y99.8 Other external cause status; I25.2 Old myocardial infarction; Z68.36 Body mass index [BMI] 36.0-36.9, adult
CPT/HCPCS: 36415; 71010; 80048; 80053; 82140; 82962; 84100; 85007; 85025; 85027; 85610; 85730; 87081; 87493; 97116; 97530; J1642; J1815

== ENCOUNTER 2016-10-14 09:57 | Emergency (ER) | payer OTHER ==
[2016-10-14] VITALS (13 sets, daily range): BP systolic 92–103; BP diastolic 44–59
[~2016-10-14] VITALS: Ht 170.2 cm; Wt 107.5 kg
[2016-10-14] MEDS ORDERED: ONDANSETRON HCL 4 MG/2 ML VIAL IV ONE (11:00)
[2016-10-14] MEDS ORDERED: HYDROmorphone HCL 2 MG/ML VL IV ONE (11:00)
[2016-10-14 11:42] LABS: Albumin 2.5 g/dL (3.4-5.0); BUN/Creatinine Ratio 3.6; Bilirubin, Total 10.4 mg/dL (0.2-1.0); Calcium 8.7 mg/dL (8.5-10.1); Potassium 3.4 mmol/L (3.5-5.1); Total Protein 5.8 g/dL (6.4-8.2)
[2016-10-14 12:29] LABS: DEFINITIVE VIEW TRANSMISSION; Hematocrit 14.4 % (36.0-46.0); Mean Corpuscular Hemoglobin 31.9 pg (28.0-32.0); Mean Corpuscular Hgb Conc. 33.5 g/dL (32.0-36.0); Mean Corpuscular Volume 95.3 fL (80.0-100.0); Mean Platelet Volume 9.1 fL (7.4-10.4); Platelet Count (auto) 151 10^3/uL (140-450); SUSPECT VIEW TRANSMISSION; White Blood Cell 13.4 10^3/uL (4.4-10.8)
[2016-10-14 12:31] LABS: Red Cell Distribution Width 32.1 % (11.6-16.0)
[2016-10-14 12:32] LABS: Hemoglobin 4.8 g/dL (12.2-16.2)
[2016-10-14 12:33] LABS: Metamyelocytes % 0; Myelocytes % 0; Promyelocytes % 0; Reactive Lymphocytes 0
[2016-10-14] MEDS ORDERED: ASPirin 81 mg TAB PO ONE ×2 (12:45)
[2016-10-14 13:15] LABS: Lactic Acid w/Reflex 9.5 mmol/L (0.4-2.0); REFLEX LACTIC ACID YES OR NO YES
[2016-10-14 13:21] LABS: Partial Thromboplastin Time 40.9 sec (22.64-33.71)
[2016-10-14 13:24] LABS: INR 1.9 (0.9-1.15); Prothrombin Time 20.9 sec (9.37-12.3)
[2016-10-14 13:32] LABS: Anisocytosis Moderate; Burr Cells MODERATE; Platelet Estimate Adequate; Polychromasia Moderate
[2016-10-14] MEDS ORDERED: LACTULOSE 20Gm/30ML SOLN PO ONE (15:00)
[2016-10-14] MEDS ORDERED: PIPERACILLIN-TAZOB 3.375GM 100 ML IV ONE (15:00)
[2016-10-14] MEDS ORDERED: NITROGLYCERIN 0.4 MG SL TAB SL PRN (15:45)
[2016-10-14] MEDS ORDERED: CITALOPRAM HYDROBR 20 MG TAB PO ONE (15:45)
[2016-10-14] MEDS ORDERED: DOCUSATE SOD 100 MG CAP PO PRN (15:45)
[2016-10-14] MEDS ORDERED: ONDANSETRON HCL 4 MG/2 ML VIAL IV PRN (15:45)
[2016-10-14] MEDS ORDERED: ACETAMINOPHEN 325 MG TAB PO PRN (15:45)
[2016-10-14] MEDS ORDERED: MORPHINE SULF INJ 2 MG/ML SYRINGE 1ML IV PRN ×2 (15:45)
[2016-10-14] MEDS ORDERED: HYDROcodone-ACET 5/325MG TAB PO PRN (15:45)
[2016-10-14] MEDS ORDERED: POTASSIUM CHL 10 Meq TABLET PO ONE (15:45)
[2016-10-14] MEDS ORDERED: TEMAZEPAM 15 MG CAP PO PRN (15:45)
[2016-10-14] MEDS ORDERED: ASCORBIC ACID 500 MG TAB PO ONE (15:45)
[2016-10-14] MEDS ORDERED: ZINC SULFATE 220 MG CAP PO SCH (15:51)
[2016-10-14] MEDS ORDERED: MULTIPLE VITAMIN TAB PO SCH (15:51)
[2016-10-14] MEDS ORDERED: DEXTROSE (50%) 50ML SYRG IV PRN (16:00)
[2016-10-14] MEDS ORDERED: FUROSEMIDE 40 MG TAB PO ONE (16:00)
[2016-10-14] MEDS: InsuLIN REG 1unit/0.01ml Soln (100units/ml) SC SCH ×2 (17:00→22:00)
[2016-10-14] MEDS: ACCU-CHEK COMFORT CURVE STRIP VI SCH ×2 (17:38→22:13)
[2016-10-14] MEDS: BOOST PLUS 8 ounce PO SCH ×2 (18:00→22:31)
[2016-10-14] MEDS ORDERED: LACTULOSE 20Gm/30ML SOLN PO SCH (18:00)
[2016-10-14] MEDS ORDERED: RIFAXIMIN 550 MG TAB PO SCH (22:00)
[2016-10-14] MEDS ORDERED: ALBUTEROL SULF 2.5 MG/0.5ML(0.5%) NEB SOLN NEB SCH (22:00)
[2016-10-14] MEDS ORDERED: IPRATROPIUM BROM 0.5 MG/2.5ML INH SOL NEB SCH (22:00)
[2016-10-14] MEDS ORDERED: PANTOPRAZOLE 40 MG TAB PO SCH (22:00)
[2016-10-14] MEDS ORDERED: SODIUM CHLOR 0.9% PF (SALINE LOCK) 10ML VIAL IV SCH (22:00)
[2016-10-14] MEDS ORDERED: FAMOTIDINE 20 MG TAB PO SCH (22:00)
[2016-10-14] MEDS ORDERED: PANTOPRAZOLE 40 MG TAB PO ONE (22:04)
[2016-10-14 22:06] LABS: DEFINITIVE VIEW TRANSMISSION; Hematocrit 23.8 % (36.0-46.0); Hemoglobin 7.9 g/dL (12.2-16.2); Mean Corpuscular Hemoglobin 30.4 pg (28.0-32.0); Mean Corpuscular Hgb Conc. 33.1 g/dL (32.0-36.0); Mean Corpuscular Volume 91.8 fL (80.0-100.0); Mean Platelet Volume 9.1 fL (7.4-10.4); Platelet Count (auto) 125 10^3/uL (140-450); SUSPECT VIEW TRANSMISSION; White Blood Cell 14.3 10^3/uL (4.4-10.8)
[2016-10-14 22:10] LABS: Red Cell Distribution Width 22.7 % (11.6-16.0)
[2016-10-14 22:11] LABS: Metamyelocytes % 0; Myelocytes % 0; Promyelocytes % 0; Reactive Lymphocytes 0
[2016-10-14] MEDS ORDERED: MORPHINE SULF INJ 2 MG/ML SYRINGE 1ML ONE (22:12)
[2016-10-14 22:33] LABS: Lactic Acid w/Reflex 3.3 mmol/L (0.4-2.0)
[2016-10-14 22:43] LABS: Anisocytosis Moderate; Burr Cells MODERATE; Platelet Estimate Decreased
[2016-10-14 23:00] LABS: REFLEX LACTIC ACID YES OR NO YES
[2016-10-15] MEDS ORDERED: CITALOPRAM HYDROBR 20 MG TAB PO SCH (10:00)
[2016-10-15] MEDS ORDERED: FUROSEMIDE 40 MG TAB PO SCH (10:00)
[2016-10-15] MEDS ORDERED: ASCORBIC ACID 500 MG TAB PO SCH (10:00)
== END 2016-10-14 23:25 | disposition home or self-care (01) ==
LOC: EDBD 09:57 → ER 09:59 → UNDOADMIN 10:00 → TELE 10:00 → ER 23:25
DX: S82.402A Unspecified fracture of shaft of left fibula, initial encounter for closed fracture (principal); S82.202A Unspecified fracture of shaft of left tibia, initial encounter for closed fracture; E11.22 Type 2 diabetes mellitus with diabetic chronic kidney disease; I13.2 Hypertensive heart and chronic kidney disease with heart failure and with stage 5 chronic kidney disease, or end stage renal disease; I50.9 Heart failure, unspecified; N18.6 End stage renal disease; K21.9 Gastro-esophageal reflux disease without esophagitis; I25.10 Atherosclerotic heart disease of native coronary artery without angina pectoris; W06.XXXA Fall from bed, initial encounter; Y99.8 Other external cause status; Y93.89 Activity, other specified; Y92.89 Other specified places as the place of occurrence of the external cause; Z79.82 Long term (current) use of aspirin; Z88.8 Allergy status to other drugs, medicaments and biological substances
CPT/HCPCS: 29505; 36415; 71020; 73700; 74176; 76700; 80053; 82140; 82962; 83036; 83605; 84484; 85007; 85027; 85610; 85730; 86850; 86900; 86901; 86920; 87040; 93005; 96365; 96366; 96375; 99291; J1170; J2270; J2405; J2543; J7040; P9016; 36430; 94640

== ENCOUNTER 2016-11-13 06:45 | Inpatient (IN) | payer OTHER ==
[~2016-11-13] VITALS: Ht 30.5 cm; Wt 87.0 kg
[~2016-11-13 06:45] MED LIST changes: -OMEP20CA5 PO; +OMEP20CA74 PO
[2016-11-13] MEDS ORDERED: MORPHINE SULF INJ 2 MG/ML SYRINGE 1ML IV PRN (07:30)
[2016-11-13] MEDS ORDERED: NITROGLYCERIN 0.4 MG SL TAB SL PRN (07:30)
[2016-11-13 08:30] VITALS: BP 108/67
[2016-11-13 10:12] VITALS: BP 108/67
[2016-11-13 12:30] VITALS: BP 90/55
[2016-11-13] MEDS ORDERED: MORPHINE SULFATE 4 MG/ML SYRG IV PRN (14:23)
[2016-11-13] MEDS ORDERED: DEXTROSE (50%) 50ML SYRG IV PRN (14:30)
[2016-11-13] MEDS ORDERED: RIFAXIMIN 550 MG TAB PO ONE (14:45)
[2016-11-13] MEDS: PIPERACILLIN-TAZOB 3.375GM 100 ML IV SCH ×2 (15:16→18:13)
[2016-11-13] MEDS: B-COMPLEX W/ C & FOLIC ACID(NEPHROVITE TAB) PO SCH (15:16)
[2016-11-13] MEDS: PHYTONADIONE (VIT K)10 MG/ML 1ML VIAL SUBCUT SCH (15:17)
[2016-11-13] MEDS: ZINC SULFATE 220 MG CAP PO SCH (15:17)
[2016-11-13] MEDS: PANTOPRAZOLE 40 MG TAB PO SCH (15:17)
[2016-11-13] MEDS: HYDROcodone-ACET 5/325MG TAB PO PRN (15:20)
[2016-11-13 16:21] VITALS: BP 105/66
[2016-11-13] MEDS: InsuLIN REG 1unit/0.01ml Soln (100units/ml) SC SCH ×2 (17:00→21:42)
[2016-11-13] MEDS: ACCU-CHEK COMFORT CURVE STRIP VI SCH ×2 (17:09→21:42)
[2016-11-13] MEDS: FERROUS SULFATE 325 MG TAB PO SCH (18:37)
[2016-11-13] MEDS: HYDROmorphone HCL 2 MG/ML VL IV PRN (20:15)
[2016-11-13] MEDS: LACTULOSE 20Gm/30ML SOLN PO SCH (21:41)
[2016-11-13] MEDS: RIFAXIMIN 550 MG TAB PO SCH (21:41)
[2016-11-13 22:00] VITALS: BP 107/58
[2016-11-14] MEDS ORDERED: EPOETIN ALFA 10,000 UNIT/1 ML VIAL IV ONE (04:00)
[2016-11-14] MEDS ORDERED: SODIUM CHL 0.9% 1000 ML BAG XX ONE (04:00)
[2016-11-14 05:30] VITALS: BP 130/87
[2016-11-14] MEDS: PIPERACILLIN-TAZOB 3.375GM 100 ML IV SCH ×4 (06:06→18:00)
[2016-11-14] MEDS: HYDROmorphone HCL 2 MG/ML VL IV PRN ×2 (06:06→19:52)
[2016-11-14] MEDS: InsuLIN REG 1unit/0.01ml Soln (100units/ml) SC SCH ×4 (06:39→21:40)
[2016-11-14] MEDS: ACCU-CHEK COMFORT CURVE STRIP VI SCH ×4 (06:39→21:40)
[2016-11-14 07:17] VITALS: BP 121/69
[2016-11-14 08:00] VITALS: BP 121/69
[2016-11-14] MEDS: RIFAXIMIN 550 MG TAB PO SCH ×2 (10:00→21:58)
[2016-11-14] MEDS: LACTULOSE 20Gm/30ML SOLN PO SCH ×2 (10:02→21:58)
[2016-11-14] MEDS: FERROUS SULFATE 325 MG TAB PO SCH ×2 (10:02→18:00)
[2016-11-14] MEDS: PANTOPRAZOLE 40 MG TAB PO SCH (10:03)
[2016-11-14] MEDS: B-COMPLEX W/ C & FOLIC ACID(NEPHROVITE TAB) PO SCH (10:03)
[2016-11-14] MEDS: ZINC SULFATE 220 MG CAP PO SCH (10:03)
[2016-11-14] MEDS: PHYTONADIONE (VIT K)10 MG/ML 1ML VIAL SUBCUT SCH (10:04)
[2016-11-14 13:02] VITALS: BP 100/72
[2016-11-14 16:35] VITALS: BP 111/67
[2016-11-14 22:00] VITALS: BP 96/64
[2016-11-15] MEDS: PIPERACILLIN-TAZOB 3.375GM 100 ML IV SCH ×5 (00:09→23:51)
[2016-11-15 05:30] VITALS: BP 114/64
[2016-11-15] MEDS: HYDROmorphone HCL 2 MG/ML VL IV PRN ×2 (05:58→21:35)
[2016-11-15] MEDS: ACCU-CHEK COMFORT CURVE STRIP VI SCH ×4 (06:30→22:11)
[2016-11-15] MEDS: InsuLIN REG 1unit/0.01ml Soln (100units/ml) SC SCH ×4 (06:30→22:00)
[2016-11-15 07:30] VITALS: BP 124/75
[2016-11-15] MEDS: FERROUS SULFATE 325 MG TAB PO SCH ×2 (08:57→17:16)
[2016-11-15] MEDS: HYDROcodone-ACET 5/325MG TAB PO PRN (08:57)
[2016-11-15] MEDS: B-COMPLEX W/ C & FOLIC ACID(NEPHROVITE TAB) PO SCH (08:58)
[2016-11-15] MEDS: PANTOPRAZOLE 40 MG TAB PO SCH (08:58)
[2016-11-15] MEDS: ZINC SULFATE 220 MG CAP PO SCH (08:58)
[2016-11-15] MEDS: LACTULOSE 20Gm/30ML SOLN PO SCH ×2 (08:59→21:33)
[2016-11-15] MEDS: PHYTONADIONE (VIT K)10 MG/ML 1ML VIAL SUBCUT SCH (08:59)
[2016-11-15 09:02] VITALS: BP 124/75
[2016-11-15 13:03] VITALS: BP 132/72
[2016-11-15] MEDS: RIFAXIMIN 550 MG TAB PO SCH ×2 (13:09→21:33)
[2016-11-15 16:28] VITALS: BP 124/70
[2016-11-15 22:00] VITALS: BP 122/80
[2016-11-16] VITALS (7 sets, daily range): BP systolic 107–131; BP diastolic 50–81
[2016-11-16] MEDS: PIPERACILLIN-TAZOB 3.375GM 100 ML IV SCH ×2 (06:13→13:10)
[2016-11-16] MEDS: ACCU-CHEK COMFORT CURVE STRIP VI SCH ×4 (06:28→22:00)
[2016-11-16] MEDS: InsuLIN REG 1unit/0.01ml Soln (100units/ml) SC SCH ×4 (06:28→22:00)
[2016-11-16] MEDS: FERROUS SULFATE 325 MG TAB PO SCH ×2 (08:00→18:00)
[2016-11-16] MEDS: PHYTONADIONE (VIT K)10 MG/ML 1ML VIAL SUBCUT SCH (10:00)
[2016-11-16] MEDS: LACTULOSE 20Gm/30ML SOLN PO SCH ×2 (10:00→22:00)
[2016-11-16] MEDS: PANTOPRAZOLE 40 MG TAB PO SCH (10:00)
[2016-11-16] MEDS: RIFAXIMIN 550 MG TAB PO SCH ×2 (10:00→22:00)
[2016-11-16] MEDS: ZINC SULFATE 220 MG CAP PO SCH (10:00)
[2016-11-16] MEDS: B-COMPLEX W/ C & FOLIC ACID(NEPHROVITE TAB) PO SCH (10:00)
[2016-11-16] MEDS: HYDROcodone-ACET 5/325MG TAB PO PRN (16:22)
[2016-11-16] MEDS: HYDROmorphone HCL 2 MG/ML VL IV PRN (21:25)
[2016-11-16] MEDS: PIPERACILLIN-TAZOB 2.25GM 50 ML IV SCH (22:00)
[2016-11-16] MEDS ORDERED: ONDANSETRON HCL 4 MG/2 ML VIAL IV PRN (22:30)
[2016-11-17 05:00] VITALS: BP 138/79
[2016-11-17] MEDS: InsuLIN REG 1unit/0.01ml Soln (100units/ml) SC SCH ×4 (06:55→22:00)
[2016-11-17] MEDS: ACCU-CHEK COMFORT CURVE STRIP VI SCH ×4 (06:55→22:00)
[2016-11-17] MEDS: FERROUS SULFATE 325 MG TAB PO SCH ×2 (08:00→17:47)
[2016-11-17 08:56] VITALS: BP 120/70
[2016-11-17] MEDS: PIPERACILLIN-TAZOB 2.25GM 50 ML IV SCH ×2 (10:00→22:00)
[2016-11-17] MEDS: ZINC SULFATE 220 MG CAP PO SCH (10:00)
[2016-11-17] MEDS: B-COMPLEX W/ C & FOLIC ACID(NEPHROVITE TAB) PO SCH (10:00)
[2016-11-17] MEDS: RIFAXIMIN 550 MG TAB PO SCH ×2 (10:00→22:00)
[2016-11-17] MEDS: PHYTONADIONE (VIT K)10 MG/ML 1ML VIAL SUBCUT SCH (10:00)
[2016-11-17] MEDS: PANTOPRAZOLE 40 MG TAB PO SCH (10:00)
[2016-11-17] MEDS: LACTULOSE 20Gm/30ML SOLN PO SCH ×2 (10:00→22:00)
[2016-11-17 11:56] VITALS: BP 122/74
[2016-11-17 16:53] VITALS: BP 117/78
[2016-11-17 20:00] VITALS: BP 140/77
[2016-11-17 22:00] VITALS: BP 140/77
[2016-11-18 05:00] VITALS: BP 122/77
[2016-11-18] MEDS: InsuLIN REG 1unit/0.01ml Soln (100units/ml) SC SCH ×4 (07:00→22:00)
[2016-11-18] MEDS: ACCU-CHEK COMFORT CURVE STRIP VI SCH ×4 (07:11→22:00)
[2016-11-18] MEDS: FERROUS SULFATE 325 MG TAB PO SCH ×2 (08:00→18:00)
[2016-11-18 08:57] VITALS: BP 133/82
[2016-11-18] MEDS: PIPERACILLIN-TAZOB 2.25GM 50 ML IV SCH ×2 (10:00→22:00)
[2016-11-18] MEDS: PHYTONADIONE (VIT K)10 MG/ML 1ML VIAL SUBCUT SCH (10:00)
[2016-11-18] MEDS: RIFAXIMIN 550 MG TAB PO SCH ×2 (10:00→22:00)
[2016-11-18] MEDS: PANTOPRAZOLE 40 MG TAB PO SCH (10:00)
[2016-11-18] MEDS: LACTULOSE 20Gm/30ML SOLN PO SCH ×2 (10:00→22:00)
[2016-11-18] MEDS: ZINC SULFATE 220 MG CAP PO SCH (10:00)
[2016-11-18] MEDS: B-COMPLEX W/ C & FOLIC ACID(NEPHROVITE TAB) PO SCH (10:00)
[2016-11-18 12:30] VITALS: BP 114/69
[2016-11-18 17:20] VITALS: BP 118/92
[2016-11-18 20:00] VITALS: BP 84/64
[2016-11-18] MEDS: LORazepam 2MG/ML-1ML VIAL IV PRN (20:51)
[2016-11-18 21:30] VITALS: BP 84/44
[2016-11-18] MEDS: HYDROmorphone HCL 2 MG/ML VL IV PRN (21:41)
[2016-11-19] MEDS: HYDROmorphone HCL 2 MG/ML VL IV PRN (01:50)
[2016-11-19] MEDS: LORazepam 2MG/ML-1ML VIAL IV PRN (03:34)
[2016-11-19 06:08] VITALS: BP 52/24
[2016-11-19] MEDS: InsuLIN REG 1unit/0.01ml Soln (100units/ml) SC SCH ×2 (07:00→11:30)
[2016-11-19] MEDS: ACCU-CHEK COMFORT CURVE STRIP VI SCH ×2 (07:00→11:30)
[2016-11-19] MEDS: FERROUS SULFATE 325 MG TAB PO SCH (08:00)
[2016-11-19] MEDS: LACTULOSE 20Gm/30ML SOLN PO SCH (10:00)
[2016-11-19] MEDS: PANTOPRAZOLE 40 MG TAB PO SCH (10:00)
[2016-11-19] MEDS: RIFAXIMIN 550 MG TAB PO SCH (10:00)
[2016-11-19] MEDS: PIPERACILLIN-TAZOB 2.25GM 50 ML IV SCH (10:00)
[2016-11-19] MEDS: ZINC SULFATE 220 MG CAP PO SCH (10:00)
[2016-11-19] MEDS: PHYTONADIONE (VIT K)10 MG/ML 1ML VIAL SUBCUT SCH (10:00)
[2016-11-19] MEDS: B-COMPLEX W/ C & FOLIC ACID(NEPHROVITE TAB) PO SCH (10:00)
== END 2016-11-19 14:26 | disposition expired | DRG 871 ==
LOC: TELE-WESTW 06:45 → WEST WING 11-16 17:37
PROVIDERS: ADMIT Family Medicine; ATTEND Internal Medicine
DX: A41.9 Sepsis, unspecified organism (principal); E43 Unspecified severe protein-calorie malnutrition; N18.6 End stage renal disease; D68.9 Coagulation defect, unspecified; S82.209A Unspecified fracture of shaft of unspecified tibia, initial encounter for closed fracture; I13.2 Hypertensive heart and chronic kidney disease with heart failure and with stage 5 chronic kidney disease, or end stage renal disease; K92.2 Gastrointestinal hemorrhage, unspecified; T87.89 Other complications of amputation stump; Z66 Do not resuscitate; Z51.5 Encounter for palliative care; D64.9 Anemia, unspecified; E11.22 Type 2 diabetes mellitus with diabetic chronic kidney disease; E11.319 Type 2 diabetes mellitus with unspecified diabetic retinopathy without macular edema; E11.40 Type 2 diabetes mellitus with diabetic neuropathy, unspecified; Y83.8 Other surgical procedures as the cause of abnormal reaction of the patient, or of later complication, without mention of misadventure at the time of the procedure; S82.409A Unspecified fracture of shaft of unspecified fibula, initial encounter for closed fracture; E66.01 Morbid (severe) obesity due to excess calories; I46.9 Cardiac arrest, cause unspecified; E11.21 Type 2 diabetes mellitus with diabetic nephropathy; J44.9 Chronic obstructive pulmonary disease, unspecified; I50.9 Heart failure, unspecified; K74.60 Unspecified cirrhosis of liver; Z89.612 Acquired absence of left leg above knee; Z99.2 Dependence on renal dialysis; Z83.3 Family history of diabetes mellitus; Z82.49 Family history of ischemic heart disease and other diseases of the circulatory system; I25.2 Old myocardial infarction; Z82.3 Family history of stroke; Z68.30 Body mass index [BMI] 30.0-30.9, adult; Z91.040 Latex allergy status; Z88.8 Allergy status to other drugs, medicaments and biological substances; Z83.6 Family history of other diseases of the respiratory system; Z80.49 Family history of malignant neoplasm of other genital organs; Z83.2 Family history of diseases of the blood and blood-forming organs and certain disorders involving the immune mechanism; Z86.19 Personal history of other infectious and parasitic diseases
CPT/HCPCS: 71010; 82962; 87081; J0885; J2405; J2543; J3430